=== PATIENT | female | born 1955 | race Caucasian/White ===

== ENCOUNTER 2020-06-16 15:21 | Emergency (ER) | payer MEDICAID, OTHER ==
[~2020-06-16] VITALS: Ht 152.4 cm; Wt 40.8 kg
[2020-06-16 17:02] LABS: Basophils # (auto) 0 10 ^3/uL (0-0.2); Basophils % (auto) 0.4 % (0.0-2.0); Eosinophils # (auto) 0 10 ^3/uL (0-0.8); Eosinophils % (auto) 0.1 % (0.0-7.0); Hematocrit 39.5 % (36.0-46.0); Hemoglobin 13.8 g/dL (12.2-16.2); Lymphocytes # (auto) 0.6 10 ^3/uL (0.4-5.4); Lymphocytes % (auto) 8.8 % (10.0-50.0); Mean Corpuscular Hemoglobin 31.3 pg (28.0-32.0); Mean Corpuscular Volume 89.2 fL (80.0-100.0); Monocytes # (auto) 0.4 10 ^3/uL (0-1.3); Monocytes % (auto) 5.9 % (0.0-12.0); Neutrophils # (auto) 5.8 10 ^3/uL (1.6-8.6); Neutrophils % (auto) 84.8 % (37.0-80.0); Red Blood Cells 4.43 10^6/uL (4.0-5.20); Red Cell Distribution Width 13.8 % (11.8-14.3); White Blood Cell 6.8 10^3/uL (4.4-10.8)
[2020-06-16] MEDS ORDERED: IOHEXOL 350 MG/ML 100ML IJ ONE (17:12)
[2020-06-16 17:20] LABS: Anion Gap 9 (5-15); Blood Urea Nitrogen 26 mg/dL (7-18); Carbon Dioxide 26 mmol/L (21-32); Chloride 101 mmol/L (98-107); Potassium 3.8 mmol/L (3.5-5.1); Sodium 136 mmol/L (136-145)
[2020-06-16 17:28] LABS: Alanine Aminotransferase 20 U/L (13-56); Albumin 4.2 g/dL (3.4-5.0); Alkaline Phosphatase 85 U/L (45-117); Aspartate Aminotransferase 19 U/L (15-37); BUN/Creatinine Ratio 17.6; Bilirubin, Total 0.5 mg/dL (0.2-1.0); Calcium 9.1 mg/dL (8.5-10.1); GFR African American 46 mL/min; GFR Non-African American 38 mL/min; Glucose 93 mg/dL (74-106); Total Protein 8.5 g/dL (6.4-8.2)
[2020-06-16] MEDS ORDERED: methylPREDNISolone SOD SUCC 125 MG/2 ML VL IM ONE (19:00)
[2020-06-16] MEDS ORDERED: cefTRIAXone SOD 1,000 MG VL IM ONE (19:00)
[2020-06-16 19:27] VITALS: BP 130/64
== END 2020-06-16 20:47 | disposition home or self-care (01) ==
LOC: ER 15:21 → EDBD 15:21 → ER 20:30
DX: J44.9 Chronic obstructive pulmonary disease, unspecified (principal); I12.9 Hypertensive chronic kidney disease with stage 1 through stage 4 chronic kidney disease, or unspecified chronic kidney disease; N18.32 Chronic kidney disease, stage 3b; Z20.822 Contact with and (suspected) exposure to COVID-19
CPT/HCPCS: 36415; 71045; 71275; 80053; 82728; 83605; 83880; 84484; 85025; 87040; 87426; 96372; 99285; C9803; J0696; J2930; Q9967; U0003; 93005

== ENCOUNTER 2020-07-12 19:54 | Emergency (ER) | payer MEDICAID ==
[~2020-07-12] VITALS: Ht 160 cm; Wt 44.0 kg
[2020-07-12 21:11] VITALS: BP 97/51
[2020-07-12] MEDS ORDERED: HYDROcodone-ACET 10/325MG TAB PO ONE (21:30)
== END 2020-07-12 23:12 | disposition home or self-care (01) ==
LOC: ER 19:54
DX: Z76.0 Encounter for issue of repeat prescription (principal); M54.5 Low back pain; M54.6 Pain in thoracic spine; M54.2 Cervicalgia; G89.29 Other chronic pain; I12.9 Hypertensive chronic kidney disease with stage 1 through stage 4 chronic kidney disease, or unspecified chronic kidney disease; N18.9 Chronic kidney disease, unspecified; F17.210 Nicotine dependence, cigarettes, uncomplicated

== ENCOUNTER 2020-07-13 20:48 | Emergency (ER) | payer MEDICAID ==
[~2020-07-13] VITALS: Ht 160 cm; Wt 44.0 kg
[2020-07-13 21:50] VITALS: BP 137/70
[2020-07-13] MEDS ORDERED: HYDROcodone-ACET 10/325MG TAB PO ONE (22:45)
== END 2020-07-13 23:44 | disposition home or self-care (01) ==
LOC: ER 20:51
DX: M54.5 Low back pain (principal); M54.2 Cervicalgia; G89.29 Other chronic pain; F17.210 Nicotine dependence, cigarettes, uncomplicated; I12.9 Hypertensive chronic kidney disease with stage 1 through stage 4 chronic kidney disease, or unspecified chronic kidney disease; N18.9 Chronic kidney disease, unspecified

== ENCOUNTER 2021-01-05 19:06 | Inpatient (IN) | payer OTHER, MEDICAID ==
[~2021-01-05] VITALS: Ht 160 cm; Wt 42.5 kg
[2021-01-05 19:33] LABS: Basophils # (auto) 0 10 ^3/uL (0-0.2); Eosinophils # (auto) 0.3 10 ^3/uL (0-0.8); Eosinophils % (auto) 7.2 % (0.0-7.0); Hematocrit 38.5 % (36.0-46.0); Hemoglobin 13.3 g/dL (12.2-16.2); Lymphocytes # (auto) 0.9 10 ^3/uL (0.4-5.4); Lymphocytes % (auto) 21.9 % (10.0-50.0); Mean Corpuscular Hemoglobin 30.9 pg (28.0-32.0); Mean Corpuscular Hgb Conc. 34.5 g/dL (32.0-36.0); Mean Corpuscular Volume 89.5 fL (80.0-100.0); Monocytes # (auto) 0.4 10 ^3/uL (0-1.3); Monocytes % (auto) 10.2 % (0.0-12.0); Neutrophils # (auto) 2.3 10 ^3/uL (1.6-8.6); Neutrophils % (auto) 59.7 % (37.0-80.0); Nucleated Red Blood Cells % 0.1 %; Red Cell Distribution Width 13.3 % (11.8-14.3); White Blood Cell 3.9 10^3/uL (4.4-10.8)
[2021-01-05 19:51] LABS: Albumin 3.9 g/dL (3.4-5.0); Anion Gap 5 (5-15); Blood Urea Nitrogen 9 mg/dL (7-18); Calcium 8.8 mg/dL (8.5-10.1); Carbon Dioxide 27 mmol/L (21-32); Chloride 106 mmol/L (98-107); Glucose 85 mg/dL (74-106); Potassium 3.7 mmol/L (3.5-5.1); Sodium 138 mmol/L (136-145)
[2021-01-05 19:57] LABS: Alanine Aminotransferase 24 U/L (13-56); Alkaline Phosphatase 70 U/L (45-117); Aspartate Aminotransferase 23 U/L (15-37); BUN/Creatinine Ratio 9.2; Bilirubin, Total 0.4 mg/dL (0.2-1.0); GFR African American 73 mL/min; GFR Non-African American 61 mL/min; Total Protein 7.7 g/dL (6.4-8.2)
[2021-01-05] MEDS ORDERED: ALBUTEROL SULF 2.5 MG/0.5ML(0.5%) NEB SOLN NEB ONE (21:45)
[2021-01-05] MEDS ORDERED: IPRATROPIUM BROM 0.5 MG/2.5ML INH SOL NEB ONE (21:45)
[2021-01-05] MEDS ORDERED: methylPREDNISolone SOD SUCC 125 MG/2 ML VL IV ONE (21:45)
[2021-01-05 22:24] LABS: Urine Bacteria NONE SEEN /hpf (None Seen); Urine Blood Negative /uL (Negative); Urine Specific Gravity 1.008 (1.001-1.035); Urine WBC 2 /hpf (0 - 5)
[2021-01-06] MEDS ORDERED: DOCUSATE SOD 100 MG CAP PO PRN (03:45)
[2021-01-06] MEDS ORDERED: ONDANSETRON HCL 4 MG/2 ML VIAL IV PRN (03:45)
[2021-01-06] MEDS ORDERED: ALBUTEROL SULF HFA 90MCG INH 200DOSE IN PRN (03:45)
[2021-01-06] MEDS ORDERED: ACETAMINOPHEN 325 MG TAB PO PRN (03:45)
[2021-01-06] MEDS ORDERED: LORazepam 0.5 MG TAB PO PRN (03:45)
[2021-01-06] MEDS ORDERED: ALUM & MAG HYDROX-SIMETH LIQ(MAALOX) 30 ML PO PRN (03:45)
[2021-01-06] MEDS ORDERED: IPRATROPIUM BROMIDE HFA AER IN SCH (06:00)
[2021-01-06] MEDS ORDERED: IPRATROPIUM BROM 0.5 MG/2.5ML INH SOL NEB PRN (06:00)
[2021-01-06] MEDS ORDERED: ALBUTEROL SULF 2.5 MG/0.5ML(0.5%) NEB SOLN NEB PRN (06:00)
[2021-01-06] MEDS ORDERED: ASCORBIC ACID 1,000 MG TAB PO SCH (10:00)
[2021-01-06] MEDS ORDERED: CHOLECALCIFEROL (VITD3) 2,000 UNIT CAP/TAB PO SCH (10:00)
[2021-01-06] MEDS: AZITHROMYCIN 500MG/ 250ML 250 ML IV SCH (10:00)
[2021-01-06] MEDS: DexAMETHasone SOD PHOS 10MG/1ML VIAL INJ IV SCH (11:11)
[2021-01-06] MEDS: MORPHINE SULFATE INJECTION 2 MG/2 ML SYRG IV PRN ×2 (11:16→22:31)
[2021-01-06] MEDS ORDERED: LISI-275 PO (16:32)
[2021-01-06] MEDS ORDERED: HYDR-4902 PO (16:32)
[2021-01-06] MEDS ORDERED: DOCU100T15 PO (16:32)
[2021-01-06 17:00] VITALS: BP 134/85
[2021-01-06 18:19] VITALS: BP 134/85
[2021-01-06] MEDS: HYDROcodone-ACET 5/325MG TAB PO PRN (19:53)
[2021-01-06 20:00] VITALS: BP 147/92
[2021-01-06 22:00] VITALS: BP 147/92
[2021-01-07] MEDS: MORPHINE SULFATE INJECTION 2 MG/2 ML SYRG IV PRN ×3 (04:19→23:12)
[2021-01-07 05:00] VITALS: BP 143/95
[2021-01-07 07:14] LABS: Basophils # (auto) 0.1 10 ^3/uL (0-0.2); Basophils % (auto) 0.7 % (0.0-2.0); Eosinophils # (auto) 0 10 ^3/uL (0-0.8); Hemoglobin 13.1 g/dL (12.2-16.2); Lymphocytes % (auto) 13.4 % (10.0-50.0); Mean Corpuscular Hemoglobin 30.8 pg (28.0-32.0); Mean Corpuscular Hgb Conc. 34.5 g/dL (32.0-36.0); Mean Corpuscular Volume 89.5 fL (80.0-100.0); Monocytes # (auto) 0.6 10 ^3/uL (0-1.3); Monocytes % (auto) 8.4 % (0.0-12.0); Neutrophils # (auto) 5.7 10 ^3/uL (1.6-8.6); Neutrophils % (auto) 77.5 % (37.0-80.0); Nucleated Red Blood Cells % 0.1 %; Red Blood Cells 4.25 10^6/uL (4.0-5.20); Red Cell Distribution Width 13.5 % (11.8-14.3); White Blood Cell 7.3 10^3/uL (4.4-10.8)
[2021-01-07 07:37] LABS: Potassium 4.7 mmol/L (3.5-5.1)
[2021-01-07 07:44] LABS: Albumin 3.4 g/dL (3.4-5.0); BUN/Creatinine Ratio 22.3; Bilirubin, Total 0.5 mg/dL (0.2-1.0); Total Protein 7.5 g/dL (6.4-8.2)
[2021-01-07 09:00] VITALS: BP 159/94
[2021-01-07] MEDS: AZITHROMYCIN 500MG/ 250ML 250 ML IV SCH (10:00)
[2021-01-07] MEDS: DexAMETHasone SOD PHOS 10MG/1ML VIAL INJ IV SCH (10:00)
[2021-01-07 13:00] VITALS: BP 145/86
[2021-01-07] MEDS: HYDROcodone-ACET 5/325MG TAB PO PRN ×2 (14:02→21:17)
[2021-01-07 16:30] VITALS: BP 130/91
[2021-01-07 22:00] VITALS: BP 146/79
[2021-01-08] MEDS: MORPHINE SULFATE INJECTION 2 MG/2 ML SYRG IV PRN ×2 (04:58→22:57)
[2021-01-08 05:01] VITALS: BP 139/80
[2021-01-08 06:33] LABS: Basophils # (auto) 0 10 ^3/uL (0-0.2); Basophils % (auto) 0.5 % (0.0-2.0); Eosinophils # (auto) 0 10 ^3/uL (0-0.8); Hematocrit 38.5 % (36.0-46.0); Hemoglobin 13.3 g/dL (12.2-16.2); Lymphocytes # (auto) 1.1 10 ^3/uL (0.4-5.4); Lymphocytes % (auto) 12.9 % (10.0-50.0); Mean Corpuscular Hemoglobin 30.3 pg (28.0-32.0); Mean Corpuscular Hgb Conc. 34.4 g/dL (32.0-36.0); Mean Corpuscular Volume 88.2 fL (80.0-100.0); Monocytes # (auto) 0.5 10 ^3/uL (0-1.3); Monocytes % (auto) 5.3 % (0.0-12.0); Neutrophils # (auto) 7.2 10 ^3/uL (1.6-8.6); Neutrophils % (auto) 81.3 % (37.0-80.0); Nucleated Red Blood Cells % 0.1 %; Red Blood Cells 4.37 10^6/uL (4.0-5.20); Red Cell Distribution Width 13.2 % (11.8-14.3); White Blood Cell 8.9 10^3/uL (4.4-10.8)
[2021-01-08 06:39] LABS: BUN/Creatinine Ratio 35.6; Calcium 8.8 mg/dL (8.5-10.1); Potassium 4.4 mmol/L (3.5-5.1)
[2021-01-08 08:30] VITALS: BP 124/83
[2021-01-08] MEDS: DexAMETHasone SOD PHOS 10MG/1ML VIAL INJ IV SCH (10:24)
[2021-01-08] MEDS: AZITHROMYCIN 500MG/ 250ML 250 ML IV SCH (10:24)
[2021-01-08] MEDS: HYDROcodone-ACET 5/325MG TAB PO PRN ×2 (10:45→20:33)
[2021-01-08 13:00] VITALS: BP 158/98
[2021-01-08 16:49] VITALS: BP 161/93
[2021-01-08 22:00] VITALS: BP 151/85
[2021-01-08] MEDS: APIXABAN 5 MG TAB PO SCH (22:23)
[2021-01-09] MEDS: MORPHINE SULFATE INJECTION 2 MG/2 ML SYRG IV PRN ×3 (04:33→19:41)
[2021-01-09 05:00] VITALS: BP 157/95
[2021-01-09 05:42] LABS: Basophils # (auto) 0 10 ^3/uL (0-0.2); Basophils % (auto) 0.1 % (0.0-2.0); Eosinophils # (auto) 0 10 ^3/uL (0-0.8); Hematocrit 37.5 % (36.0-46.0); Hemoglobin 13.2 g/dL (12.2-16.2); Lymphocytes # (auto) 1.5 10 ^3/uL (0.4-5.4); Lymphocytes % (auto) 19.8 % (10.0-50.0); Mean Corpuscular Hemoglobin 31.2 pg (28.0-32.0); Mean Corpuscular Hgb Conc. 35.2 g/dL (32.0-36.0); Mean Corpuscular Volume 88.6 fL (80.0-100.0); Monocytes # (auto) 0.6 10 ^3/uL (0-1.3); Monocytes % (auto) 7.7 % (0.0-12.0); Neutrophils # (auto) 5.6 10 ^3/uL (1.6-8.6); Neutrophils % (auto) 72.4 % (37.0-80.0); Red Blood Cells 4.24 10^6/uL (4.0-5.20); Red Cell Distribution Width 13.1 % (11.8-14.3); White Blood Cell 7.7 10^3/uL (4.4-10.8)
[2021-01-09 06:07] LABS: Albumin 3.4 g/dL (3.4-5.0); BUN/Creatinine Ratio 34.4; Calcium 8.5 mg/dL (8.5-10.1); Potassium 4.3 mmol/L (3.5-5.1)
[2021-01-09 06:10] LABS: Bilirubin, Total 0.4 mg/dL (0.2-1.0); Total Protein 6.8 g/dL (6.4-8.2)
[2021-01-09 09:00] VITALS: BP 151/89
[2021-01-09] MEDS: DexAMETHasone SOD PHOS 10MG/1ML VIAL INJ IV SCH (09:51)
[2021-01-09] MEDS: APIXABAN 5 MG TAB PO SCH ×2 (09:52→22:04)
[2021-01-09] MEDS: AZITHROMYCIN 500MG/ 250ML 250 ML IV SCH (09:52)
[2021-01-09] MEDS: HYDROcodone-ACET 5/325MG TAB PO PRN (09:53)
[2021-01-09 12:42] VITALS: BP 157/100
[2021-01-09 17:12] VITALS: BP 150/94
[2021-01-09 22:00] VITALS: BP 161/92
[2021-01-10] VITALS (7 sets, daily range): BP systolic 138–182; BP diastolic 79–92
[2021-01-10] MEDS: MORPHINE SULFATE INJECTION 2 MG/2 ML SYRG IV PRN ×4 (00:33→20:16)
[2021-01-10] MEDS: hydrALAZINE HCL 20 MG/ML VL IV PRN ×2 (00:33→06:43)
[2021-01-10 05:59] LABS: Basophils # (auto) 0 10 ^3/uL (0-0.2); Basophils % (auto) 0.4 % (0.0-2.0); Eosinophils # (auto) 0 10 ^3/uL (0-0.8); Eosinophils % (auto) 0.1 % (0.0-7.0); Hematocrit 40.9 % (36.0-46.0); Lymphocytes # (auto) 1.6 10 ^3/uL (0.4-5.4); Lymphocytes % (auto) 20.1 % (10.0-50.0); Mean Corpuscular Hemoglobin 30.7 pg (28.0-32.0); Mean Corpuscular Hgb Conc. 34.3 g/dL (32.0-36.0); Mean Corpuscular Volume 89.7 fL (80.0-100.0); Monocytes # (auto) 0.7 10 ^3/uL (0-1.3); Monocytes % (auto) 8.4 % (0.0-12.0); Neutrophils # (auto) 5.7 10 ^3/uL (1.6-8.6); Nucleated Red Blood Cells % 0.1 %; Red Blood Cells 4.56 10^6/uL (4.0-5.20); Red Cell Distribution Width 13.2 % (11.8-14.3); White Blood Cell 8.1 10^3/uL (4.4-10.8)
[2021-01-10 06:32] LABS: Potassium 4.4 mmol/L (3.5-5.1)
[2021-01-10 06:54] LABS: BUN/Creatinine Ratio 31.2
[2021-01-10] MEDS: LISINOPRIL 10 MG TAB PO SCH (09:10)
[2021-01-10] MEDS: APIXABAN 5 MG TAB PO SCH ×2 (09:11→20:47)
[2021-01-10] MEDS: DexAMETHasone SOD PHOS 10MG/1ML VIAL INJ IV SCH (09:11)
[2021-01-10] MEDS: AZITHROMYCIN 500MG/ 250ML 250 ML IV SCH (09:11)
[2021-01-10] MEDS: HYDROcodone-ACET 5/325MG TAB PO PRN (10:10)
[2021-01-10] MEDS ORDERED: methylPREDNISolone SOD SUCC 125 MG/2 ML VL IV ONE (11:00)
[2021-01-10] MEDS: IPRATROPIUM BROM 0.5 MG/2.5ML INH SOL NEB SCH ×3 (12:24→19:53)
[2021-01-10] MEDS: ALBUTEROL SULF 2.5 MG/0.5ML(0.5%) NEB SOLN NEB SCH ×2 (12:32→19:53)
[2021-01-10] MEDS: methylPREDNISolone SOD SUCC 40 MG/ML VL IV SCH (20:47)
[2021-01-11] MEDS: MORPHINE SULFATE INJECTION 2 MG/2 ML SYRG IV PRN ×2 (00:26→05:05)
[2021-01-11] MEDS: ALBUTEROL SULF 2.5 MG/0.5ML(0.5%) NEB SOLN NEB SCH ×3 (00:46→11:38)
[2021-01-11] MEDS: IPRATROPIUM BROM 0.5 MG/2.5ML INH SOL NEB SCH ×3 (00:47→11:38)
[2021-01-11 05:00] VITALS: BP 160/89
[2021-01-11] MEDS: hydrALAZINE HCL 20 MG/ML VL IV PRN (07:05)
[2021-01-11 08:00] VITALS: BP 129/69
[2021-01-11 08:58] VITALS: BP 122/67
[2021-01-11] MEDS: methylPREDNISolone SOD SUCC 40 MG/ML VL IV SCH (09:10)
[2021-01-11] MEDS: APIXABAN 5 MG TAB PO SCH (09:11)
[2021-01-11] MEDS: HYDROcodone-ACET 5/325MG TAB PO PRN (09:12)
[2021-01-11] MEDS: LISINOPRIL 10 MG TAB PO SCH (09:12)
[2021-01-11 10:46] VITALS: BP 129/69
[2021-01-11 13:00] VITALS: BP 152/85
[2021-01-15] MEDS ORDERED: APIXABAN 5 MG TAB PO SCH (22:00)
== END 2021-01-11 13:30 | disposition home or self-care (01) | DRG 189 ==
LOC: EDBD 19:06 → ER 19:12 → OVERFLOW 01-06 03:32 → CENTRAL 01-06 14:52
PROVIDERS: ADMIT Hospitalist; ATTEND Internal Medicine
DX: J96.21 Acute and chronic respiratory failure with hypoxia (principal); J18.9 Pneumonia, unspecified organism; I82.411 Acute embolism and thrombosis of right femoral vein; J44.1 Chronic obstructive pulmonary disease with (acute) exacerbation; J45.901 Unspecified asthma with (acute) exacerbation; E87.1 Hypo-osmolality and hyponatremia; N17.9 Acute kidney failure, unspecified; J20.9 Acute bronchitis, unspecified; N18.30 Chronic kidney disease, stage 3 unspecified; I12.9 Hypertensive chronic kidney disease with stage 1 through stage 4 chronic kidney disease, or unspecified chronic kidney disease; G89.29 Other chronic pain; Z20.822 Contact with and (suspected) exposure to COVID-19; Z79.01 Long term (current) use of anticoagulants; Z86.73 Personal history of transient ischemic attack (TIA), and cerebral infarction without residual deficits; Z72.0 Tobacco use
CPT/HCPCS: 36415; 71045; 71250; 78582; 80048; 80053; 81001; 83735; 83880; 84443; 84484; 85025; 85379; 87070; 87205; 87426; 92610; 93005; 93970; 94640; 96365; 96366; 96375; G0378; J1100; J2405

== ENCOUNTER 2021-03-08 23:26 | Inpatient (IN) | payer OTHER, MEDICAID ==
[~2021-03-08] VITALS: Ht 162.6 cm; Wt 43.0 kg
[~2021-03-08 23:26] MED LIST: DOCU100T15 PO; HYDR-4902 PO; LISI-275 PO
[2021-03-08 23:56] LABS: Basophils # (auto) 0.1 10 ^3/uL (0-0.2); Basophils % (auto) 0.5 % (0.0-2.0); Eosinophils # (auto) 0.1 10 ^3/uL (0-0.8); Eosinophils % (auto) 0.4 % (0.0-7.0); Hematocrit 42.1 % (36.0-46.0); Lymphocytes # (auto) 0.7 10 ^3/uL (0.4-5.4); Lymphocytes % (auto) 4.9 % (10.0-50.0); Mean Corpuscular Hemoglobin 28.9 pg (28.0-32.0); Mean Corpuscular Hgb Conc. 33.2 g/dL (32.0-36.0); Monocytes # (auto) 0.6 10 ^3/uL (0-1.3); Monocytes % (auto) 4.5 % (0.0-12.0); Neutrophils # (auto) 12.3 10 ^3/uL (1.6-8.6); Neutrophils % (auto) 89.7 % (37.0-80.0); Red Blood Cells 4.85 10^6/uL (4.0-5.20); Red Cell Distribution Width 15.1 % (11.8-14.3); White Blood Cell 13.7 10^3/uL (4.4-10.8)
[2021-03-09 00:20] LABS: Albumin 3.6 g/dL (3.4-5.0); Calcium 8.7 mg/dL (8.5-10.1); Potassium 3.3 mmol/L (3.5-5.1)
[2021-03-09 00:25] LABS: BUN/Creatinine Ratio 14.3; Bilirubin, Total 0.6 mg/dL (0.2-1.0); Total Protein 7.1 g/dL (6.4-8.2)
[2021-03-09] MEDS ORDERED: cefTRIAXone 1GM/50ML D5W 50 ML IV ONE (08:15)
[2021-03-09] MEDS ORDERED: AZITHROMYCIN 500MG/ 250ML 250 ML IV ONE (08:15)
[2021-03-09] MEDS ORDERED: POTASSIUM EFFERVESENT TAB 25 MEQ PO ONE (08:15)
[2021-03-09] MEDS ORDERED: HYDROcodone-ACET 5/325MG TAB PO PRN (09:45)
[2021-03-09] MEDS ORDERED: ACETAMINOPHEN 500 MG TAB PO PRN (09:45)
[2021-03-09] MEDS ORDERED: NITROGLYCERIN 0.4 MG SL TAB SL PRN (09:45)
[2021-03-09] MEDS ORDERED: MORPHINE SULFATE INJECTION 2 MG/ML SYRG IV PRN ×2 (09:45)
[2021-03-09 10:03] LABS: Urine Bacteria NONE SEEN /hpf (None Seen); Urine Blood Negative /uL (Negative); Urine Specific Gravity 1.015 (1.001-1.035); Urine WBC 1 /hpf (0 - 5)
[2021-03-09 10:39] VITALS: BP 166/80
[2021-03-09] MEDS: ENOXAPARIN SOD 40 MG/0.4 ML SYRINGE SC SCH (10:57)
[2021-03-09] MEDS: LISINOPRIL 5 MG TAB PO SCH (10:57)
[2021-03-09] MEDS: BUDESONIDE (INHALATION) 0.5 MG/2 ML NEB NEB SCH ×2 (11:45→20:00)
[2021-03-09] MEDS: ALBUTEROL SULF 2.5 MG/0.5ML(0.5%) NEB SOLN NEB SCH ×2 (11:45→20:00)
[2021-03-09] MEDS: IPRATROPIUM BROM 0.5 MG/2.5ML INH SOL NEB SCH ×2 (11:45→20:00)
[2021-03-09 17:00] VITALS: BP 143/76
[2021-03-09 17:06] VITALS: BP 143/76
[2021-03-09 22:00] VITALS: BP 116/63
[2021-03-10 05:00] VITALS: BP 147/79
[2021-03-10] MEDS: ALBUTEROL SULF 2.5 MG/0.5ML(0.5%) NEB SOLN NEB SCH ×3 (06:24→18:28)
[2021-03-10] MEDS: BUDESONIDE (INHALATION) 0.5 MG/2 ML NEB NEB SCH ×2 (06:24→18:28)
[2021-03-10] MEDS: IPRATROPIUM BROM 0.5 MG/2.5ML INH SOL NEB SCH ×3 (06:24→18:28)
[2021-03-10 06:46] LABS: Basophils # (auto) 0 10 ^3/uL (0-0.2); Basophils % (auto) 0.3 % (0.0-2.0); Eosinophils # (auto) 0.2 10 ^3/uL (0-0.8); Eosinophils % (auto) 1.8 % (0.0-7.0); Hematocrit 36.9 % (36.0-46.0); Hemoglobin 12.6 g/dL (12.2-16.2); Lymphocytes # (auto) 0.8 10 ^3/uL (0.4-5.4); Lymphocytes % (auto) 6.8 % (10.0-50.0); Mean Corpuscular Hemoglobin 29.5 pg (28.0-32.0); Mean Corpuscular Hgb Conc. 34.1 g/dL (32.0-36.0); Mean Corpuscular Volume 86.7 fL (80.0-100.0); Monocytes # (auto) 0.6 10 ^3/uL (0-1.3); Monocytes % (auto) 5.7 % (0.0-12.0); Neutrophils # (auto) 9.7 10 ^3/uL (1.6-8.6); Neutrophils % (auto) 85.4 % (37.0-80.0); Red Blood Cells 4.25 10^6/uL (4.0-5.20); Red Cell Distribution Width 15.1 % (11.8-14.3); White Blood Cell 11.3 10^3/uL (4.4-10.8)
[2021-03-10 06:59] LABS: Calcium 8.9 mg/dL (8.5-10.1); Potassium 3.3 mmol/L (3.5-5.1)
[2021-03-10 07:02] LABS: BUN/Creatinine Ratio 21.1
[2021-03-10 09:16] VITALS: BP 140/88
[2021-03-10] MEDS: cefTRIAXone 1GM/50ML D5W 50 ML IV SCH (09:30)
[2021-03-10] MEDS: AZITHROMYCIN 500MG/ 250ML 250 ML IV SCH (10:06)
[2021-03-10] MEDS: ENOXAPARIN SOD 40 MG/0.4 ML SYRINGE SC SCH (10:07)
[2021-03-10] MEDS: LISINOPRIL 5 MG TAB PO SCH (10:16)
[2021-03-10] MEDS ORDERED: POTASSIUM CHL 20 Meq TABLET PO ONE (11:45)
[2021-03-10 12:55] VITALS: BP 160/88
[2021-03-10] MEDS ORDERED: cloNIDine HCL 0.1 MG TAB PO PRN (13:45)
[2021-03-10 16:57] VITALS: BP 157/83
[2021-03-10 22:00] VITALS: BP 145/75
[2021-03-10] MEDS: APIXABAN 5 MG TAB PO SCH (22:15)
[2021-03-11 04:54] LABS: Basophils # (auto) 0.1 10 ^3/uL (0-0.2); Basophils % (auto) 0.7 % (0.0-2.0); Eosinophils # (auto) 0.4 10 ^3/uL (0-0.8); Eosinophils % (auto) 3.9 % (0.0-7.0); Hemoglobin 12.7 g/dL (12.2-16.2); Lymphocytes # (auto) 1.2 10 ^3/uL (0.4-5.4); Lymphocytes % (auto) 12.3 % (10.0-50.0); Mean Corpuscular Hemoglobin 29.4 pg (28.0-32.0); Mean Corpuscular Hgb Conc. 33.5 g/dL (32.0-36.0); Mean Corpuscular Volume 87.9 fL (80.0-100.0); Monocytes # (auto) 0.6 10 ^3/uL (0-1.3); Monocytes % (auto) 6.3 % (0.0-12.0); Neutrophils # (auto) 7.3 10 ^3/uL (1.6-8.6); Neutrophils % (auto) 76.8 % (37.0-80.0); Red Blood Cells 4.32 10^6/uL (4.0-5.20); Red Cell Distribution Width 14.9 % (11.8-14.3); White Blood Cell 9.5 10^3/uL (4.4-10.8)
[2021-03-11 05:00] VITALS: BP 153/78
[2021-03-11] MEDS ORDERED: DULO20CA PO (05:14)
[2021-03-11] MEDS ORDERED: APIX5TAB PO (05:14)
[2021-03-11] MEDS ORDERED: BUDE1AER6 IN (05:14)
[2021-03-11] MEDS ORDERED: BENA1TAB21 PO (05:14)
[2021-03-11] MEDS ORDERED: HYDR-4798 PO (05:14)
[2021-03-11] MEDS ORDERED: PANT40TA2 PO (05:14)
[2021-03-11] MEDS ORDERED: CHOL20007 PO (05:14)
[2021-03-11] MEDS ORDERED: GABA300C10 PO (05:14)
[2021-03-11 05:16] LABS: Calcium 8.9 mg/dL (8.5-10.1); Potassium 3.4 mmol/L (3.5-5.1)
[2021-03-11] MEDS: BUDESONIDE (INHALATION) 0.5 MG/2 ML NEB NEB SCH ×2 (07:00→18:39)
[2021-03-11] MEDS: IPRATROPIUM BROM 0.5 MG/2.5ML INH SOL NEB SCH ×3 (07:00→18:39)
[2021-03-11] MEDS: ALBUTEROL SULF 2.5 MG/0.5ML(0.5%) NEB SOLN NEB SCH ×3 (07:00→18:39)
[2021-03-11 09:00] VITALS: BP 162/88
[2021-03-11] MEDS ORDERED: LISINOPRIL 5 MG TAB PO SCH (10:00)
[2021-03-11] MEDS ORDERED: cloNIDine HCL 0.1 MG TAB ONE (10:09)
[2021-03-11] MEDS: cefTRIAXone 1GM/50ML D5W 50 ML IV SCH (10:22)
[2021-03-11] MEDS: APIXABAN 5 MG TAB PO SCH ×2 (10:23→22:59)
[2021-03-11] MEDS ORDERED: HCTZ 25 MG TAB PO ONE (11:15)
[2021-03-11] MEDS: AZITHROMYCIN 500MG/ 250ML 250 ML IV SCH (11:18)
[2021-03-11 13:00] VITALS: BP 131/69
[2021-03-11 17:00] VITALS: BP 129/81
[2021-03-11 23:20] VITALS: BP 135/80
[2021-03-12 05:26] VITALS: BP 122/61
[2021-03-12] MEDS: ALBUTEROL SULF 2.5 MG/0.5ML(0.5%) NEB SOLN NEB SCH ×2 (06:59→12:00)
[2021-03-12] MEDS: IPRATROPIUM BROM 0.5 MG/2.5ML INH SOL NEB SCH ×2 (06:59→12:00)
[2021-03-12] MEDS: BUDESONIDE (INHALATION) 0.5 MG/2 ML NEB NEB SCH (07:00)
[2021-03-12 07:27] LABS: BUN/Creatinine Ratio 23.1; Calcium 9.2 mg/dL (8.5-10.1)
[2021-03-12 09:00] VITALS: BP 151/80
[2021-03-12] MEDS ORDERED: LISINOPRIL 5 MG TAB PO SCH (10:00)
[2021-03-12] MEDS ORDERED: HCTZ 25 MG TAB PO SCH (10:00)
[2021-03-12] MEDS ORDERED: POTASSIUM CHL 20 Meq TABLET PO SCH (10:00)
[2021-03-12] MEDS: AZITHROMYCIN 500MG/ 250ML 250 ML IV SCH (10:08)
[2021-03-12] MEDS: cefTRIAXone 1GM/50ML D5W 50 ML IV SCH (10:08)
[2021-03-12] MEDS: APIXABAN 5 MG TAB PO SCH (10:08)
[2021-03-12] MEDS ORDERED: LEVO750T8 PO (12:10)
[2021-03-12] MEDS ORDERED: ALBUAER3 IN (12:10)
[2021-03-12 13:24] VITALS: BP 151/80
== END 2021-03-12 16:00 | disposition home health service (06) | DRG 871 ==
LOC: EDBD 23:26 → ER 23:26 → TELE 03-09 09:34 → TELE-EAST 03-09 16:16 → TELE-CENTR 03-09 16:40 → CENTRAL 03-11 11:45
PROVIDERS: ADMIT Nurse Practitioner Acute Care; ATTEND Internal Medicine
DX: A41.9 Sepsis, unspecified organism (principal); J18.9 Pneumonia, unspecified organism; J96.21 Acute and chronic respiratory failure with hypoxia; G92.8 Other toxic encephalopathy; J44.1 Chronic obstructive pulmonary disease with (acute) exacerbation; R64 Cachexia; J44.0 Chronic obstructive pulmonary disease with (acute) lower respiratory infection; N18.31 Chronic kidney disease, stage 3a; Z20.822 Contact with and (suspected) exposure to COVID-19; I12.9 Hypertensive chronic kidney disease with stage 1 through stage 4 chronic kidney disease, or unspecified chronic kidney disease; E87.6 Hypokalemia; F17.210 Nicotine dependence, cigarettes, uncomplicated; Z79.899 Other long term (current) drug therapy; Z82.49 Family history of ischemic heart disease and other diseases of the circulatory system; Z83.3 Family history of diabetes mellitus; Z86.718 Personal history of other venous thrombosis and embolism; Z86.73 Personal history of transient ischemic attack (TIA), and cerebral infarction without residual deficits
CPT/HCPCS: 36415; 36600; 71045; 71046; 80048; 80053; 81001; 82805; 83605; 83880; 84484; 85025; 87040; 87426; 87804; 94640; 96365; 96367; 97163; G0378; J0696

== ENCOUNTER 2021-05-06 17:23 | Inpatient (IN) | payer OTHER, MEDICAID ==
[~2021-05-06] VITALS: Ht 167.6 cm; Wt 43.0 kg
[~2021-05-06 17:23] MED LIST changes: +ALBUAER3 IN; +APIX5TAB PO; +BENA1TAB21 PO; +BUDE1AER6 IN; +CHOL20007 PO; +DULO20CA PO; +GABA300C10 PO; +HYDR-4798 PO; +LEVO750T8 PO; +PANT40TA2 PO
[2021-05-06 22:38] LABS: Basophils # (auto) 0 10 ^3/uL (0-0.2); Eosinophils # (auto) 0 10 ^3/uL (0-0.8); Eosinophils % (auto) 0.3 % (0.0-7.0); Lymphocytes # (auto) 0.5 10 ^3/uL (0.4-5.4); Monocytes # (auto) 0.5 10 ^3/uL (0-1.3); White Blood Cell 4.8 10^3/uL (4.4-10.8)
[2021-05-06 22:40] LABS: Basophils % (auto) 0.4 % (0.0-2.0); Hemoglobin 13.3 g/dL (12.2-16.2); Lymphocytes % (auto) 10.4 % (10.0-50.0); Mean Corpuscular Hemoglobin 26.9 pg (28.0-32.0); Mean Corpuscular Hgb Conc. 33.3 g/dL (32.0-36.0); Mean Corpuscular Volume 80.6 fL (80.0-100.0); Monocytes % (auto) 10.7 % (0.0-12.0); Neutrophils # (auto) 3.8 10 ^3/uL (1.6-8.6); Neutrophils % (auto) 78.2 % (37.0-80.0); Red Blood Cells 4.96 10^6/uL (4.0-5.20)
[2021-05-06 23:04] LABS: Albumin 3.6 g/dL (3.4-5.0); Calcium 8.5 mg/dL (8.5-10.1); Potassium 3.2 mmol/L (3.5-5.1)
[2021-05-06 23:10] LABS: BUN/Creatinine Ratio 14.6; Bilirubin, Total 0.7 mg/dL (0.2-1.0); Total Protein 7.2 g/dL (6.4-8.2)
[2021-05-07] MEDS ORDERED: ONDANSETRON HCL 4 MG/2 ML VIAL IV PRN (05:30)
[2021-05-07] MEDS ORDERED: HYDROcodone-ACET 5/325MG TAB PO PRN (05:30)
[2021-05-07] MEDS ORDERED: ACETAMINOPHEN 500 MG TAB PO PRN (05:30)
[2021-05-07] MEDS ORDERED: MORPHINE SULFATE INJECTION 2 MG/ML SYRG IV PRN (05:30)
[2021-05-07] MEDS ORDERED: ACETAMINOPHEN 325 MG TAB PO PRN (05:30)
[2021-05-07] MEDS ORDERED: NITROGLYCERIN 0.4 MG SL TAB SL PRN (05:30)
[2021-05-07] MEDS ORDERED: DOCUSATE SOD 100 MG CAP PO PRN (05:30)
[2021-05-07] MEDS: SODIUM CHLORIDE 0.9% 1,000 ML IV SCH ×2 (06:51→12:41)
[2021-05-07] MEDS: POTASSIUM CHL 20MEQ/100ML 100 ML IV SCH ×2 (06:51→08:30)
[2021-05-07 07:27] VITALS: BP 170/87
[2021-05-07 08:48] VITALS: BP 188/88
[2021-05-07] MEDS: cefTRIAXone 1GM/50ML D5W 50 ML IV SCH (09:06)
[2021-05-07] MEDS: FAMOTIDINE (10MG/ML) 2ML VL IV SCH ×2 (09:06→22:10)
[2021-05-07] MEDS: DexAMETHasone SOD PHOS 10MG/1ML VIAL INJ IV SCH (09:06)
[2021-05-07] MEDS: ENOXAPARIN SOD 40 MG/0.4 ML SYRINGE SC SCH (09:07)
[2021-05-07] MEDS: METOPROLOL TARTRATE 50 MG TAB PO SCH ×2 (09:07→22:10)
[2021-05-07] MEDS: MULTIPLE VITAMIN TAB PO SCH (09:07)
[2021-05-07] MEDS: CHOLECALCIFEROL (VITD3) 2,000 UNIT CAP/TAB PO SCH (09:07)
[2021-05-07] MEDS: ZINC SULFATE 220mg CAP or TAB PO SCH (09:08)
[2021-05-07] MEDS: amLODIPine BESYLATE 5 MG TAB PO SCH (09:08)
[2021-05-07] MEDS: ASPirin 81 mg TAB PO SCH (09:08)
[2021-05-07] MEDS: ASCORBIC ACID 1,000 MG TAB PO SCH (09:08)
[2021-05-07] MEDS: ALBUTEROL SULF HFA 90MCG INH 200DOSE IN PRN ×2 (09:45→22:30)
[2021-05-07] MEDS: BUDESONIDE (INHALATION) 180 MCG IH IN SCH ×2 (09:45→22:30)
[2021-05-07] MEDS: DOXYCYCLINE 100MG/250ML 250 ML IV SCH ×2 (09:52→22:10)
[2021-05-07] MEDS: hydrALAZINE HCL 20 MG/ML VL IV PRN ×2 (11:59→21:26)
[2021-05-07] MEDS ORDERED: POTASSIUM CHL 20MEQ/100ML 100 ML IV SCH (12:15)
[2021-05-07 13:00] VITALS: BP 188/92
[2021-05-07 16:48] VITALS: BP 161/95
[2021-05-07 22:00] VITALS: BP 154/88
[2021-05-08 05:00] VITALS: BP 153/95
[2021-05-08] MEDS: hydrALAZINE HCL 20 MG/ML VL IV PRN ×2 (05:33→13:34)
[2021-05-08 06:56] LABS: Lymphocytes % (auto) 10.1 % (10.0-50.0); Monocytes % (auto) 14.8 % (0.0-12.0); Neutrophils % (auto) 74.9 % (37.0-80.0); White Blood Cell 5.9 10^3/uL (4.4-10.8)
[2021-05-08 06:57] LABS: Basophils # (auto) 0 10 ^3/uL (0-0.2); Basophils % (auto) 0.2 % (0.0-2.0); Eosinophils # (auto) 0 10 ^3/uL (0-0.8); Hematocrit 40.3 % (36.0-46.0); Lymphocytes # (auto) 0.6 10 ^3/uL (0.4-5.4); Mean Corpuscular Hemoglobin 27.5 pg (28.0-32.0); Mean Corpuscular Hgb Conc. 34.6 g/dL (32.0-36.0); Mean Corpuscular Volume 79.5 fL (80.0-100.0); Monocytes # (auto) 0.9 10 ^3/uL (0-1.3); Neutrophils # (auto) 4.4 10 ^3/uL (1.6-8.6); Nucleated Red Blood Cells % 0.1 %; Red Blood Cells 5.07 10^6/uL (4.0-5.20); Red Cell Distribution Width 15.3 % (11.8-14.3)
[2021-05-08 07:01] LABS: Calcium 8.5 mg/dL (8.5-10.1); Potassium 3.2 mmol/L (3.5-5.1)
[2021-05-08 07:08] LABS: Albumin 3.5 g/dL (3.4-5.0); BUN/Creatinine Ratio 22.7; Bilirubin, Total 0.5 mg/dL (0.2-1.0); Total Protein 7.4 g/dL (6.4-8.2)
[2021-05-08] MEDS: BUDESONIDE (INHALATION) 180 MCG IH IN SCH (07:10)
[2021-05-08] MEDS: ALBUTEROL SULF HFA 90MCG INH 200DOSE IN PRN (07:10)
[2021-05-08 09:13] VITALS: BP 158/94
[2021-05-08] MEDS: ENOXAPARIN SOD 40 MG/0.4 ML SYRINGE SC SCH (09:39)
[2021-05-08] MEDS: DexAMETHasone SOD PHOS 10MG/1ML VIAL INJ IV SCH (09:39)
[2021-05-08] MEDS: FAMOTIDINE (10MG/ML) 2ML VL IV SCH (09:39)
[2021-05-08] MEDS: cefTRIAXone 1GM/50ML D5W 50 ML IV SCH (09:40)
[2021-05-08] MEDS: ASCORBIC ACID 1,000 MG TAB PO SCH (09:40)
[2021-05-08] MEDS: ASPirin 81 mg TAB PO SCH (09:40)
[2021-05-08] MEDS: METOPROLOL TARTRATE 50 MG TAB PO SCH (09:40)
[2021-05-08] MEDS: ZINC SULFATE 220mg CAP or TAB PO SCH (09:40)
[2021-05-08] MEDS: CHOLECALCIFEROL (VITD3) 2,000 UNIT CAP/TAB PO SCH (09:41)
[2021-05-08] MEDS: MULTIPLE VITAMIN TAB PO SCH (09:41)
[2021-05-08] MEDS: amLODIPine BESYLATE 5 MG TAB PO SCH (09:41)
[2021-05-08] MEDS: DOXYCYCLINE 100MG/250ML 250 ML IV SCH (10:50)
[2021-05-08 12:50] VITALS: BP 166/86
[2021-05-08] MEDS ORDERED: MET50T PO (13:15)
[2021-05-08] MEDS ORDERED: ALBUAER3 IN (13:15)
[2021-05-08] MEDS ORDERED: DEXA6TAB6 PO (13:15)
[2021-05-08] MEDS ORDERED: DOXY-332 PO (13:15)
[2021-05-08] MEDS ORDERED: AML5T PO (13:15)
[2021-05-08 14:41] VITALS: BP 166/86
[2021-05-08] MEDS: SODIUM CHLORIDE 0.9% 1,000 ML IV SCH (15:36)
[2021-05-08 17:11] VITALS: BP 147/74
== END 2021-05-08 18:46 | disposition home health service (06) | DRG 177 ==
LOC: ER 17:23 → EDBD 17:23 → TELE 05-07 05:53 → TELE-EAST 05-07 08:05
PROVIDERS: ADMIT Nurse Practitioner Family; ATTEND Nurse Practitioner Family
DX: U07.1 COVID-19 (principal); J12.82 Pneumonia due to coronavirus disease 2019; J96.01 Acute respiratory failure with hypoxia; E87.1 Hypo-osmolality and hyponatremia; J44.0 Chronic obstructive pulmonary disease with (acute) lower respiratory infection; E87.6 Hypokalemia; F17.210 Nicotine dependence, cigarettes, uncomplicated; I16.0 Hypertensive urgency; I12.9 Hypertensive chronic kidney disease with stage 1 through stage 4 chronic kidney disease, or unspecified chronic kidney disease; R77.8 Other specified abnormalities of plasma proteins; K21.9 Gastro-esophageal reflux disease without esophagitis; F32.9 Major depressive disorder, single episode, unspecified; N18.9 Chronic kidney disease, unspecified; Z82.49 Family history of ischemic heart disease and other diseases of the circulatory system; Z83.3 Family history of diabetes mellitus; Z86.73 Personal history of transient ischemic attack (TIA), and cerebral infarction without residual deficits
CPT/HCPCS: 36415; 70450; 71045; 80053; 83605; 83735; 84484; 85025; 87040; 87426; 93005; 94640; G0378; J0696; J1100; J3480; J3490

== ENCOUNTER 2021-05-26 06:12 | Inpatient (IN) | payer OTHER, MEDICAID ==
[~2021-05-26] VITALS: Ht 157.5 cm; Wt 52.1 kg
[~2021-05-26 06:12] MED LIST changes: +AML5T PO; +DEXA6TAB6 PO; +DOXY-332 PO; -HYDR-4902 PO; -LEVO750T8 PO; +MET50T PO
[2021-05-26 07:54] LABS: Basophils # (auto) 0.1 10 ^3/uL (0-0.2); Basophils % (auto) 0.6 % (0.0-2.0); Eosinophils # (auto) 0.1 10 ^3/uL (0-0.8); Hematocrit 34.6 % (36.0-46.0); Hemoglobin 11.7 g/dL (12.2-16.2); Lymphocytes # (auto) 1.2 10 ^3/uL (0.4-5.4); Lymphocytes % (auto) 9.3 % (10.0-50.0); Mean Corpuscular Hemoglobin 27.2 pg (28.0-32.0); Mean Corpuscular Hgb Conc. 33.9 g/dL (32.0-36.0); Mean Corpuscular Volume 80.1 fL (80.0-100.0); Monocytes # (auto) 0.7 10 ^3/uL (0-1.3); Monocytes % (auto) 5.2 % (0.0-12.0); Neutrophils # (auto) 10.6 10 ^3/uL (1.6-8.6); Neutrophils % (auto) 83.9 % (37.0-80.0); Nucleated Red Blood Cells % 0.1 %; Red Blood Cells 4.32 10^6/uL (4.0-5.20); Red Cell Distribution Width 16.1 % (11.8-14.3); White Blood Cell 12.7 10^3/uL (4.4-10.8)
[2021-05-26] MEDS ORDERED: ONDANSETRON HCL 4 MG/2 ML VIAL IV ONE ×2 (08:30→10:30)
[2021-05-26] MEDS ORDERED: MORPHINE SULFATE 4 MG/ML SYR/VIAL IV ONE ×2 (08:30→10:30)
[2021-05-26 09:23] LABS: Albumin 3.4 g/dL (3.4-5.0); Calcium 8.8 mg/dL (8.5-10.1); Potassium 4.8 mmol/L (3.5-5.1)
[2021-05-26 09:29] LABS: BUN/Creatinine Ratio 27.7; Bilirubin, Total 0.5 mg/dL (0.2-1.0)
[2021-05-26 11:46] LABS: INR 0.99 (0.9-1.15)
[2021-05-26] MEDS ORDERED: NITROGLYCERIN 0.4 MG SL TAB SL PRN ×2 (12:15→16:30)
[2021-05-26] MEDS ORDERED: ONDANSETRON HCL 4 MG/2 ML VIAL IV PRN (15:00)
[2021-05-26] MEDS ORDERED: ceFAZolin 1GM/50ML 50 ML IV ONE (15:00)
[2021-05-26] MEDS: SODIUM CHLORIDE 0.9% 1,000 ML IV SCH ×2 (15:00→15:20)
[2021-05-26] MEDS: MORPHINE SULFATE INJECTION 2 MG/ML SYRG IV PRN (15:21)
[2021-05-26] MEDS ORDERED: IPRATROPIUM BROM 0.5 MG/2.5ML INH SOL NEB ONE (15:45)
[2021-05-26] MEDS ORDERED: NIFEdipine ER 30 MG TAB PO ONE (15:45)
[2021-05-26] MEDS ORDERED: BENAZEPRIL HCL 10 MG TAB PO ONE (15:45)
[2021-05-26] MEDS ORDERED: hydrALAZINE HCL 20 MG/ML VL IV PRN (15:45)
[2021-05-26] MEDS ORDERED: DOCUSATE SOD 100 MG CAP PO PRN (16:30)
[2021-05-26] MEDS ORDERED: BUDESONIDE (INHALATION) 0.5 MG/2 ML NEB NEB ONE (16:30)
[2021-05-26] MEDS ORDERED: MORPHINE SULFATE INJECTION 2 MG/ML SYRG IV PRN (16:30)
[2021-05-26] MEDS ORDERED: METOCLOPRAMIDE HCL 5MG/ml INJ 2ml VIAL IV PRN (16:30)
[2021-05-26] MEDS ORDERED: ACETAMINOPHEN 325 MG TAB PO PRN (16:30)
[2021-05-26] MEDS ORDERED: PANTOPRAZOLE 40 MG/10 ML VIAL INJ IV ONE (16:30)
[2021-05-26] MEDS ORDERED: METOPROLOL SUCCINATE XL 50 MG TAB PO ONE (16:30)
[2021-05-26] MEDS ORDERED: CALCIUM W/VIT D (600MG/400IU) TAB PO ONE (16:30)
[2021-05-26] MEDS ORDERED: LORazepam 0.5 MG TAB PO PRN (16:30)
[2021-05-26] MEDS ORDERED: ALUM & MAG HYDROX-SIMETH LIQ(MAALOX) 30 ML PO PRN (16:30)
[2021-05-26 16:44] VITALS: BP 149/94
[2021-05-26 17:12] LABS: Cholesterol 210 mg/dL (< 200); HDL Cholesterol 67 mg/dL (40-59); LDL Cholesterol 117 mg/dL (< 100); Triglycerides 97 mg/dL (< 150)
[2021-05-26] MEDS: HYDROcodone-ACET 5/325MG TAB PO PRN (18:56)
[2021-05-26] MEDS: ceFAZolin 1GM/50ML 50 ML IV SCH (18:57)
[2021-05-26] MEDS: IPRATROPIUM BROM 0.5 MG/2.5ML INH SOL NEB SCH ×2 (19:54→22:29)
[2021-05-26] MEDS: MEGESTROL ACET 400MG/10ML ORAL SUSP PO SCH (21:00)
[2021-05-26 22:00] VITALS: BP 86/44
[2021-05-26] MEDS ORDERED: BUDESONIDE (INHALATION) 0.5 MG/2 ML NEB NEB SCH (22:00)
[2021-05-26] MEDS ORDERED: ATORVASTATIN 20 MG TAB PO SCH (22:00)
[2021-05-26] MEDS: LATANOPROST 0.005 % OPTH(EYE) SOL 2.5ML EACHEYE SCH (23:42)
[2021-05-27] VITALS: BP 102/55
[2021-05-27] MEDS: HYDROcodone-ACET 5/325MG TAB PO PRN (01:25)
[2021-05-27] MEDS: IPRATROPIUM BROM 0.5 MG/2.5ML INH SOL NEB SCH (02:00)
[2021-05-27 05:00] VITALS: BP 77/47
[2021-05-27] MEDS: AZITHROMYCIN 500MG/ 250ML 250 ML IV SCH (05:10)
[2021-05-27] MEDS ORDERED: ALBUMIN 25% 50 ML IV ONE (05:38)
[2021-05-27] MEDS: ALBUMIN 25% 50 ML IV SCH ×3 (05:45→21:14)
[2021-05-27 06:22] LABS: Basophils # (auto) 0.1 10 ^3/uL (0-0.2); Basophils % (auto) 0.9 % (0.0-2.0); Eosinophils # (auto) 0 10 ^3/uL (0-0.8); Eosinophils % (auto) 0.4 % (0.0-7.0); Hematocrit 28.9 % (36.0-46.0); Hemoglobin 9.8 g/dL (12.2-16.2); Lymphocytes # (auto) 1.5 10 ^3/uL (0.4-5.4); Lymphocytes % (auto) 11.1 % (10.0-50.0); Mean Corpuscular Hemoglobin 27.3 pg (28.0-32.0); Mean Corpuscular Hgb Conc. 33.8 g/dL (32.0-36.0); Mean Corpuscular Volume 80.9 fL (80.0-100.0); Monocytes # (auto) 1.1 10 ^3/uL (0-1.3); Monocytes % (auto) 8.2 % (0.0-12.0); Neutrophils # (auto) 10.8 10 ^3/uL (1.6-8.6); Neutrophils % (auto) 79.4 % (37.0-80.0); Red Blood Cells 3.57 10^6/uL (4.0-5.20); Red Cell Distribution Width 16.3 % (11.8-14.3); White Blood Cell 13.6 10^3/uL (4.4-10.8)
[2021-05-27 06:47] LABS: Magnesium 1.7 mg/dL (1.6-2.6)
[2021-05-27 06:53] LABS: Phosphorus 3.8 mg/dL (2.5-4.90)
[2021-05-27 06:59] LABS: INR 1.04 (0.9-1.15); Partial Thromboplastin Time 26.6 sec (23.6-33.0)
[2021-05-27] MEDS: ceFAZolin 1GM/50ML 50 ML IV SCH ×3 (06:59→22:42)
[2021-05-27] MEDS: CALCIUM W/VIT D (600MG/400IU) TAB PO SCH ×2 (08:00→19:51)
[2021-05-27 08:33] VITALS: BP 112/62
[2021-05-27] MEDS: ZINC SULFATE 220mg CAP or TAB PO SCH (10:00)
[2021-05-27] MEDS: DULoxetine HCL 30 MG CAP PO SCH (10:00)
[2021-05-27] MEDS: BENAZEPRIL HCL 10 MG TAB PO SCH (10:00)
[2021-05-27] MEDS: CHOLECALCIFEROL (VITD3) 2,000 UNIT CAP/TAB PO SCH (10:00)
[2021-05-27] MEDS: NIFEdipine ER 30 MG TAB PO SCH (10:00)
[2021-05-27] MEDS: ASCORBIC ACID 1,000 MG TAB PO SCH (10:00)
[2021-05-27] MEDS: METOPROLOL SUCCINATE XL 50 MG TAB PO SCH (10:00)
[2021-05-27] MEDS: MEGESTROL ACET 400MG/10ML ORAL SUSP PO SCH ×2 (10:00→21:13)
[2021-05-27] MEDS ORDERED: ASPirin 81 mg TAB PO SCH (10:00)
[2021-05-27] MEDS ORDERED: ENOXAPARIN SOD 40 MG/0.4 ML SYRINGE SC SCH (10:00)
[2021-05-27] MEDS: MORPHINE SULFATE INJECTION 2 MG/ML SYRG IV PRN ×3 (10:05→19:52)
[2021-05-27] MEDS: DexAMETHasone SOD PHOS 10MG/1ML VIAL INJ IV SCH (10:41)
[2021-05-27] MEDS: PANTOPRAZOLE 40 MG/10 ML VIAL INJ IV SCH (10:41)
[2021-05-27 11:52] VITALS: BP 124/69
[2021-05-27] MEDS: SODIUM CHLORIDE 0.9% 1,000 ML IV SCH (13:45)
[2021-05-27 16:53] VITALS: BP 103/66
[2021-05-27] MEDS ORDERED: IOHEXOL 350 MG/ML 100ML IJ ONE (18:02)
[2021-05-27] MEDS: ATORVASTATIN 20 MG TAB PO SCH (21:13)
[2021-05-27 21:35] VITALS: BP 150/84
[2021-05-27] MEDS: BUDESONIDE (INHALATION) 180 MCG IH IN SCH (22:06)
[2021-05-27] MEDS: LATANOPROST 0.005 % OPTH(EYE) SOL 2.5ML EACHEYE SCH (22:10)
[2021-05-28] MEDS: SODIUM CHLORIDE 0.9% 1,000 ML IV SCH ×2 (02:35→17:45)
[2021-05-28] MEDS: AZITHROMYCIN 500MG/ 250ML 250 ML IV SCH (04:28)
[2021-05-28 05:34] VITALS: BP 139/83
[2021-05-28] MEDS: MORPHINE SULFATE INJECTION 2 MG/ML SYRG IV PRN ×2 (06:27→11:02)
[2021-05-28] MEDS: ceFAZolin 1GM/50ML 50 ML IV SCH ×3 (06:33→23:07)
[2021-05-28 06:36] LABS: Basophils # (auto) 0 10 ^3/uL (0-0.2); Basophils % (auto) 0.2 % (0.0-2.0); Eosinophils # (auto) 0 10 ^3/uL (0-0.8); Hematocrit 25.7 % (36.0-46.0); Hemoglobin 8.5 g/dL (12.2-16.2); Lymphocytes # (auto) 1.1 10 ^3/uL (0.4-5.4); Lymphocytes % (auto) 7.5 % (10.0-50.0); Mean Corpuscular Hemoglobin 26.5 pg (28.0-32.0); Mean Corpuscular Volume 80.2 fL (80.0-100.0); Monocytes # (auto) 1.3 10 ^3/uL (0-1.3); Monocytes % (auto) 8.8 % (0.0-12.0); Neutrophils # (auto) 12.1 10 ^3/uL (1.6-8.6); Neutrophils % (auto) 83.5 % (37.0-80.0); Red Cell Distribution Width 16.7 % (11.8-14.3); White Blood Cell 14.4 10^3/uL (4.4-10.8)
[2021-05-28 06:52] LABS: Potassium 3.7 mmol/L (3.5-5.1)
[2021-05-28 07:02] LABS: Albumin 3.5 g/dL (3.4-5.0); BUN/Creatinine Ratio 27.1; Bilirubin, Total 0.7 mg/dL (0.2-1.0); Calcium 8.7 mg/dL (8.5-10.1); Total Protein 5.9 g/dL (6.4-8.2)
[2021-05-28] MEDS ORDERED: BUPIVACAINE W/ EPINEPH 0.25% INJ 50ML MDV ONE ×2 (07:17→07:53)
[2021-05-28] MEDS ORDERED: TRANEXAMIC ACID 20 ML ONE (07:53)
[2021-05-28 09:00] VITALS: BP 169/86
[2021-05-28] MEDS ORDERED: HEPARIN SODIUM (PORCINE) 5000 UNITS/ML 1ML VIAL IV ONE (09:30)
[2021-05-28] MEDS: PANTOPRAZOLE 40 MG/10 ML VIAL INJ IV SCH (09:33)
[2021-05-28] MEDS: ZINC SULFATE 220mg CAP or TAB PO SCH (09:33)
[2021-05-28] MEDS: CALCIUM W/VIT D (600MG/400IU) TAB PO SCH ×2 (09:33→17:44)
[2021-05-28] MEDS: DexAMETHasone SOD PHOS 10MG/1ML VIAL INJ IV SCH (09:33)
[2021-05-28] MEDS: BENAZEPRIL HCL 10 MG TAB PO SCH (09:34)
[2021-05-28] MEDS: BUDESONIDE (INHALATION) 180 MCG IH IN SCH ×2 (09:34→20:33)
[2021-05-28] MEDS: ALBUTEROL SULF HFA 90MCG INH 200DOSE IN PRN ×2 (09:34→20:33)
[2021-05-28] MEDS: DULoxetine HCL 30 MG CAP PO SCH (09:34)
[2021-05-28] MEDS: NIFEdipine ER 30 MG TAB PO SCH (09:35)
[2021-05-28] MEDS: MEGESTROL ACET 400MG/10ML ORAL SUSP PO SCH ×2 (09:35→21:56)
[2021-05-28] MEDS: ASCORBIC ACID 1,000 MG TAB PO SCH (09:36)
[2021-05-28] MEDS: CHOLECALCIFEROL (VITD3) 2,000 UNIT CAP/TAB PO SCH (09:36)
[2021-05-28] MEDS: METOPROLOL SUCCINATE XL 50 MG TAB PO SCH (09:36)
[2021-05-28 10:00] LABS: Basophils # (auto) 0.1 10 ^3/uL (0-0.2); Basophils % (auto) 0.5 % (0.0-2.0); Eosinophils # (auto) 0 10 ^3/uL (0-0.8); Hematocrit 26.7 % (36.0-46.0); Hemoglobin 8.9 g/dL (12.2-16.2); Lymphocytes # (auto) 1.1 10 ^3/uL (0.4-5.4); Lymphocytes % (auto) 7.9 % (10.0-50.0); Mean Corpuscular Hgb Conc. 33.6 g/dL (32.0-36.0); Mean Corpuscular Volume 80.5 fL (80.0-100.0); Monocytes # (auto) 1.2 10 ^3/uL (0-1.3); Monocytes % (auto) 8.8 % (0.0-12.0); Neutrophils # (auto) 11.3 10 ^3/uL (1.6-8.6); Neutrophils % (auto) 82.8 % (37.0-80.0); Red Blood Cells 3.31 10^6/uL (4.0-5.20); Red Cell Distribution Width 16.8 % (11.8-14.3); White Blood Cell 13.7 10^3/uL (4.4-10.8)
[2021-05-28] MEDS ORDERED: APIXABAN 5 MG TAB PO SCH ×2 (10:00)
[2021-05-28] MEDS ORDERED: ASPirin 81 mg TAB PO ONE (10:30)
[2021-05-28] MEDS: HEPARIN DRIP/D5W 100UNITS/ML 250 ML IV SCH (11:00)
[2021-05-28] MEDS: HYDROcodone-ACET 5/325MG TAB PO PRN ×3 (12:51→21:58)
[2021-05-28 13:00] VITALS: BP 146/70
[2021-05-28] MEDS ORDERED: REMDESIVIR PER PHARMACY 0 ML IV SCH (15:30)
[2021-05-28 17:00] VITALS: BP 93/58
[2021-05-28] MEDS ORDERED: REMDESIVIR 200 MG in NS 210ml LOADING DOSE ADULT IV ONE (17:00)
[2021-05-28 21:20] LABS: INR 1.07 (0.9-1.15); Partial Thromboplastin Time 52.3 sec (23.6-33.0)
[2021-05-28] MEDS: LATANOPROST 0.005 % OPTH(EYE) SOL 2.5ML EACHEYE SCH (21:55)
[2021-05-28] MEDS: ATORVASTATIN 20 MG TAB PO SCH (21:55)
[2021-05-28 22:00] VITALS: BP 90/52
[2021-05-29 03:05] LABS: INR 1.05 (0.9-1.15); Partial Thromboplastin Time 54.1 sec (23.6-33.0)
[2021-05-29] MEDS: AZITHROMYCIN 500MG/ 250ML 250 ML IV SCH (04:17)
[2021-05-29] MEDS: SODIUM CHLORIDE 0.9% 1,000 ML IV SCH ×2 (04:21→22:35)
[2021-05-29 05:00] VITALS: BP 109/53
[2021-05-29] MEDS: MORPHINE SULFATE INJECTION 2 MG/ML SYRG IV PRN ×2 (06:19→22:03)
[2021-05-29] MEDS: ceFAZolin 1GM/50ML 50 ML IV SCH ×3 (06:31→22:08)
[2021-05-29 07:44] LABS: Basophils # (auto) 0 10 ^3/uL (0-0.2); Basophils % (auto) 0.1 % (0.0-2.0); Eosinophils # (auto) 0 10 ^3/uL (0-0.8); Hematocrit 23.6 % (36.0-46.0); Lymphocytes # (auto) 0.8 10 ^3/uL (0.4-5.4); Lymphocytes % (auto) 8.1 % (10.0-50.0); Monocytes # (auto) 0.8 10 ^3/uL (0-1.3)
[2021-05-29 07:46] LABS: Mean Corpuscular Hemoglobin 27.1 pg (28.0-32.0); Mean Corpuscular Hgb Conc. 33.8 g/dL (32.0-36.0); Mean Corpuscular Volume 80.3 fL (80.0-100.0); Monocytes % (auto) 7.8 % (0.0-12.0); Neutrophils # (auto) 8.9 10 ^3/uL (1.6-8.6); Red Blood Cells 2.94 10^6/uL (4.0-5.20); Red Cell Distribution Width 17.1 % (11.8-14.3); White Blood Cell 10.5 10^3/uL (4.4-10.8)
[2021-05-29 07:48] LABS: Calcium 8.9 mg/dL (8.5-10.1); Potassium 3.9 mmol/L (3.5-5.1)
[2021-05-29 07:58] LABS: BUN/Creatinine Ratio 35.2; Bilirubin, Total 0.3 mg/dL (0.2-1.0); Total Protein 5.4 g/dL (6.4-8.2)
[2021-05-29 09:00] VITALS: BP 107/62
[2021-05-29 09:10] LABS: INR 1.07 (0.9-1.15)
[2021-05-29] MEDS: BUDESONIDE (INHALATION) 180 MCG IH IN SCH ×2 (09:32→22:25)
[2021-05-29] MEDS: ALBUTEROL SULF HFA 90MCG INH 200DOSE IN PRN (09:32)
[2021-05-29] MEDS: METOPROLOL SUCCINATE XL 50 MG TAB PO SCH (10:00)
[2021-05-29] MEDS: ASPirin 81 mg TAB PO SCH (10:00)
[2021-05-29] MEDS: ASCORBIC ACID 1,000 MG TAB PO SCH (10:37)
[2021-05-29] MEDS: CHOLECALCIFEROL (VITD3) 2,000 UNIT CAP/TAB PO SCH (10:37)
[2021-05-29] MEDS: NIFEdipine ER 30 MG TAB PO SCH (10:39)
[2021-05-29] MEDS: MEGESTROL ACET 400MG/10ML ORAL SUSP PO SCH ×2 (10:41→21:55)
[2021-05-29] MEDS: DexAMETHasone SOD PHOS 10MG/1ML VIAL INJ IV SCH (10:43)
[2021-05-29] MEDS: PANTOPRAZOLE 40 MG/10 ML VIAL INJ IV SCH (10:44)
[2021-05-29] MEDS: ZINC SULFATE 220mg CAP or TAB PO SCH (10:44)
[2021-05-29] MEDS: DULoxetine HCL 30 MG CAP PO SCH (10:45)
[2021-05-29] MEDS: BENAZEPRIL HCL 10 MG TAB PO SCH (10:46)
[2021-05-29] MEDS: CALCIUM W/VIT D (600MG/400IU) TAB PO SCH ×2 (10:46→18:00)
[2021-05-29] MEDS: HYDROcodone-ACET 5/325MG TAB PO PRN ×2 (12:31→19:53)
[2021-05-29 13:00] VITALS: BP 127/65
[2021-05-29] MEDS: HEPARIN DRIP/D5W 100UNITS/ML 250 ML IV SCH ×2 (15:30→17:00)
[2021-05-29 17:00] VITALS: BP 111/63
[2021-05-29] MEDS: REMDESIVIR 100mg 100 MG in SODIUM CHL 0.9% 230 ML IV SCH (17:00)
[2021-05-29] MEDS ORDERED: SODIUM CHLORIDE 0.9% 500 ML IV ONE (21:00)
[2021-05-29] MEDS ORDERED: ACETAMINOPHEN 325 MG TAB PO PRN (21:00)
[2021-05-29 21:46] VITALS: BP 90/50
[2021-05-29] MEDS: ATORVASTATIN 20 MG TAB PO SCH (21:54)
[2021-05-29] MEDS: LATANOPROST 0.005 % OPTH(EYE) SOL 2.5ML EACHEYE SCH (21:54)
[2021-05-30] VITALS (12 sets, daily range): BP systolic 100–143; BP diastolic 54–78
[2021-05-30] MEDS: AZITHROMYCIN 500MG/ 250ML 250 ML IV SCH ×2 (04:28→08:55)
[2021-05-30] MEDS: MORPHINE SULFATE INJECTION 2 MG/ML SYRG IV PRN ×4 (04:29→17:52)
[2021-05-30] MEDS: ceFAZolin 1GM/50ML 50 ML IV SCH ×3 (06:22→23:00)
[2021-05-30 06:35] LABS: Basophils # (auto) 0 10 ^3/uL (0-0.2); Eosinophils # (auto) 0 10 ^3/uL (0-0.8); Hemoglobin 7.4 g/dL (12.2-16.2); Neutrophils # (auto) 6.6 10 ^3/uL (1.6-8.6)
[2021-05-30 06:37] LABS: Basophils % (auto) 0.2 % (0.0-2.0); Eosinophils % (auto) 0.3 % (0.0-7.0); Hematocrit 22.2 % (36.0-46.0); Lymphocytes % (auto) 12.6 % (10.0-50.0); Mean Corpuscular Hemoglobin 27.2 pg (28.0-32.0); Mean Corpuscular Hgb Conc. 33.5 g/dL (32.0-36.0); Mean Corpuscular Volume 81.3 fL (80.0-100.0); Monocytes # (auto) 0.7 10 ^3/uL (0-1.3); Monocytes % (auto) 8.1 % (0.0-12.0); Neutrophils % (auto) 78.8 % (37.0-80.0); Red Blood Cells 2.73 10^6/uL (4.0-5.20); Red Cell Distribution Width 16.6 % (11.8-14.3); White Blood Cell 8.4 10^3/uL (4.4-10.8)
[2021-05-30 07:06] LABS: Potassium 4.2 mmol/L (3.5-5.1)
[2021-05-30 07:10] LABS: Albumin 2.6 g/dL (3.4-5.0); BUN/Creatinine Ratio 34.1
[2021-05-30 07:12] LABS: Bilirubin, Total 0.3 mg/dL (0.2-1.0); Total Protein 4.8 g/dL (6.4-8.2)
[2021-05-30] MEDS: CALCIUM W/VIT D (600MG/400IU) TAB PO SCH ×2 (08:00→18:49)
[2021-05-30] MEDS ORDERED: TETRACAINE 1% INJ 2 ML VIAL IJ ONE (08:20)
[2021-05-30] MEDS ORDERED: MORPHINE SULF PF 2 MG/2 ML SYRG ONE (08:24)
[2021-05-30] MEDS ORDERED: fentaNYL CITRATE 100 MCG/2 ML VL ONE (08:24)
[2021-05-30] MEDS ORDERED: MIDAZOLAM HCL 2MG/2ML 2ml VIAL (1mg/ml) ONE (08:24)
[2021-05-30] MEDS ORDERED: LIDOCAINE 2% (LOCAL ANESTH.) PF 5ml SDV ONE (08:25)
[2021-05-30] MEDS ORDERED: PROPOFOL 10 MG/ML 20 ML IV ONE (08:25)
[2021-05-30] MEDS ORDERED: ONDANSETRON HCL 4 MG/2 ML VIAL ONE (08:25)
[2021-05-30] MEDS ORDERED: ceFAZolin 1GM/50ML 100 ML IV ONE (09:16)
[2021-05-30] MEDS: ALBUTEROL SULF HFA 90MCG INH 200DOSE IN PRN ×2 (09:49→23:14)
[2021-05-30] MEDS: BUDESONIDE (INHALATION) 180 MCG IH IN SCH ×2 (09:50→22:00)
[2021-05-30] MEDS: NIFEdipine ER 30 MG TAB PO SCH (10:00)
[2021-05-30] MEDS: ZINC SULFATE 220mg CAP or TAB PO SCH (10:00)
[2021-05-30] MEDS: PANTOPRAZOLE 40 MG/10 ML VIAL INJ IV SCH (10:00)
[2021-05-30] MEDS: MEGESTROL ACET 400MG/10ML ORAL SUSP PO SCH ×2 (10:00→22:14)
[2021-05-30] MEDS: ASPirin 81 mg TAB PO SCH (10:00)
[2021-05-30] MEDS: ASCORBIC ACID 1,000 MG TAB PO SCH (10:00)
[2021-05-30] MEDS: DexAMETHasone SOD PHOS 10MG/1ML VIAL INJ IV SCH (10:00)
[2021-05-30] MEDS: BENAZEPRIL HCL 10 MG TAB PO SCH (10:00)
[2021-05-30] MEDS: DULoxetine HCL 30 MG CAP PO SCH (10:00)
[2021-05-30] MEDS: METOPROLOL SUCCINATE XL 50 MG TAB PO SCH (10:00)
[2021-05-30] MEDS: CHOLECALCIFEROL (VITD3) 2,000 UNIT CAP/TAB PO SCH (10:00)
[2021-05-30] MEDS: SODIUM CHLORIDE 0.9% 1,000 ML IV SCH ×2 (10:20→23:40)
[2021-05-30] MEDS ORDERED: NALOXONE HCL 0.4 MG/ML VIAL IV PRN (11:30)
[2021-05-30] MEDS ORDERED: NALBUPHINE HCL 10 MG/1ml INJECTION SUBCUT ONE (11:30)
[2021-05-30] MEDS ORDERED: KETOROLAC TROMETH 30 MG/ML 1ML VIAL IV PRN (11:30)
[2021-05-30] MEDS ORDERED: diphenhdrAMINE HCL 50 MG/1 ML VL IV PRN (11:30)
[2021-05-30] MEDS ORDERED: HYDROmorphone HCL 2 MG/ML VL IV PRN (11:30)
[2021-05-30] MEDS ORDERED: DexAMETHasone SOD PHOS 10MG/1ML VIAL INJ IV PRN (11:30)
[2021-05-30] MEDS: REMDESIVIR 100mg 100 MG in SODIUM CHL 0.9% 230 ML IV SCH (15:59)
[2021-05-30] MEDS: HEPARIN DRIP/D5W 100UNITS/ML 250 ML IV SCH (17:00)
[2021-05-30] MEDS: ATORVASTATIN 20 MG TAB PO SCH (22:14)
[2021-05-30] MEDS: LATANOPROST 0.005 % OPTH(EYE) SOL 2.5ML EACHEYE SCH (22:14)
[2021-05-30] MEDS: HYDROcodone-ACET 5/325MG TAB PO PRN (22:15)
[2021-05-30 23:41] LABS: INR 1.16 (0.9-1.15); Partial Thromboplastin Time 27.3 sec (23.6-33.0)
[2021-05-31] VITALS (10 sets, daily range): BP systolic 129–169; BP diastolic 72–90
[2021-05-31] MEDS: HYDROcodone-ACET 5/325MG TAB PO PRN (03:10)
[2021-05-31] MEDS: AZITHROMYCIN 500MG/ 250ML 250 ML IV SCH (05:30)
[2021-05-31] MEDS: BUDESONIDE (INHALATION) 180 MCG IH IN SCH ×2 (05:57→22:35)
[2021-05-31] MEDS: ALBUTEROL SULF HFA 90MCG INH 200DOSE IN PRN (05:58)
[2021-05-31] MEDS ORDERED: hydrALAZINE HCL 20 MG/ML VL IV PRN (07:00)
[2021-05-31 07:02] LABS: Basophils # (auto) 0 10 ^3/uL (0-0.2); Basophils % (auto) 0.3 % (0.0-2.0); Eosinophils # (auto) 0.1 10 ^3/uL (0-0.8); Eosinophils % (auto) 0.6 % (0.0-7.0); Hematocrit 36.3 % (36.0-46.0); Hemoglobin 12.5 g/dL (12.2-16.2); Lymphocytes # (auto) 0.8 10 ^3/uL (0.4-5.4); Lymphocytes % (auto) 7.4 % (10.0-50.0); Mean Corpuscular Hemoglobin 28.8 pg (28.0-32.0); Mean Corpuscular Hgb Conc. 34.4 g/dL (32.0-36.0); Mean Corpuscular Volume 83.5 fL (80.0-100.0); Monocytes # (auto) 0.7 10 ^3/uL (0-1.3); Monocytes % (auto) 7.1 % (0.0-12.0); Neutrophils # (auto) 8.8 10 ^3/uL (1.6-8.6); Neutrophils % (auto) 84.6 % (37.0-80.0); Nucleated Red Blood Cells % 0.1 %; Red Blood Cells 4.34 10^6/uL (4.0-5.20); Red Cell Distribution Width 17.5 % (11.8-14.3); White Blood Cell 10.3 10^3/uL (4.4-10.8)
[2021-05-31 07:16] LABS: INR 1.19 (0.9-1.15); Partial Thromboplastin Time 31.1 sec (23.6-33.0)
[2021-05-31 07:23] LABS: Potassium 3.8 mmol/L (3.5-5.1)
[2021-05-31 07:36] LABS: Albumin 2.7 g/dL (3.4-5.0); Bilirubin, Total 0.6 mg/dL (0.2-1.0); CRP High Sensitivity 4.99 mg/dL (< 0.3); Calcium 8.1 mg/dL (8.5-10.1); Total Protein 5.1 g/dL (6.4-8.2)
[2021-05-31] MEDS ORDERED: HEPARIN SODIUM (PORCINE) 5000 UNITS/ML 1ML VIAL IV ONE (08:00)
[2021-05-31] MEDS ORDERED: HEPARIN DRIP/D5W 100UNITS/ML 250 ML IV SCH (08:00)
[2021-05-31] MEDS: MORPHINE SULFATE INJECTION 2 MG/ML SYRG IV PRN ×3 (08:24→18:58)
[2021-05-31] MEDS: ceFAZolin 1GM/50ML 50 ML IV SCH ×3 (08:34→23:25)
[2021-05-31] MEDS: ASCORBIC ACID 1,000 MG TAB PO SCH (08:36)
[2021-05-31] MEDS: CHOLECALCIFEROL (VITD3) 2,000 UNIT CAP/TAB PO SCH (08:36)
[2021-05-31] MEDS: METOPROLOL SUCCINATE XL 50 MG TAB PO SCH (08:37)
[2021-05-31] MEDS: NIFEdipine ER 30 MG TAB PO SCH (08:38)
[2021-05-31] MEDS: MEGESTROL ACET 400MG/10ML ORAL SUSP PO SCH ×2 (08:38→22:13)
[2021-05-31] MEDS: DULoxetine HCL 30 MG CAP PO SCH (08:39)
[2021-05-31] MEDS: BENAZEPRIL HCL 10 MG TAB PO SCH (08:39)
[2021-05-31] MEDS: ZINC SULFATE 220mg CAP or TAB PO SCH (08:39)
[2021-05-31] MEDS: CALCIUM W/VIT D (600MG/400IU) TAB PO SCH ×2 (08:40→18:42)
[2021-05-31] MEDS: ASPirin 81 mg TAB PO SCH (08:40)
[2021-05-31] MEDS: PANTOPRAZOLE 40 MG/10 ML VIAL INJ IV SCH (08:40)
[2021-05-31] MEDS: DexAMETHasone SOD PHOS 10MG/1ML VIAL INJ IV SCH (08:40)
[2021-05-31 08:45] LABS: INR 1.21 (0.9-1.15); Partial Thromboplastin Time 32.4 sec (23.6-33.0)
[2021-05-31] MEDS ORDERED: ALBUTEROL SULF HFA 90MCG INH 200DOSE IN SCH (14:00)
[2021-05-31] MEDS: REMDESIVIR 100mg 100 MG in SODIUM CHL 0.9% 230 ML IV SCH (15:00)
[2021-05-31] MEDS: SODIUM CHLORIDE 0.9% 1,000 ML IV SCH (15:13)
[2021-05-31 16:37] LABS: INR 1.22 (0.9-1.15); Partial Thromboplastin Time 60.7 sec (23.6-33.0)
[2021-05-31] MEDS: LATANOPROST 0.005 % OPTH(EYE) SOL 2.5ML EACHEYE SCH (22:12)
[2021-05-31] MEDS: ENOXAPARIN SOD 60 MG/0.6 ML SYRINGE SC SCH (22:12)
[2021-05-31] MEDS: ATORVASTATIN 20 MG TAB PO SCH (22:13)
[2021-06-01] MEDS: ALBUTEROL SULF HFA 90MCG INH 200DOSE IN PRN ×2 (00:40→08:54)
[2021-06-01] MEDS: SODIUM CHLORIDE 0.9% 1,000 ML IV SCH ×2 (02:20→17:04)
[2021-06-01] MEDS: MORPHINE SULFATE INJECTION 2 MG/ML SYRG IV PRN ×4 (04:10→19:13)
[2021-06-01 05:00] VITALS: BP 133/75
[2021-06-01] MEDS: ceFAZolin 1GM/50ML 50 ML IV SCH ×3 (07:00→22:36)
[2021-06-01 07:49] LABS: Calcium 8.2 mg/dL (8.5-10.1); Potassium 4.1 mmol/L (3.5-5.1)
[2021-06-01 07:55] LABS: Albumin 2.5 g/dL (3.4-5.0); BUN/Creatinine Ratio 31.1; Bilirubin, Total 0.6 mg/dL (0.2-1.0)
[2021-06-01] MEDS: BUDESONIDE (INHALATION) 180 MCG IH IN SCH ×2 (07:55→18:59)
[2021-06-01 09:00] VITALS: BP 143/75
[2021-06-01] MEDS: DexAMETHasone SOD PHOS 10MG/1ML VIAL INJ IV SCH (09:25)
[2021-06-01] MEDS: PANTOPRAZOLE 40 MG/10 ML VIAL INJ IV SCH (09:25)
[2021-06-01] MEDS: ASPirin 81 mg TAB PO SCH (09:25)
[2021-06-01] MEDS: CALCIUM W/VIT D (600MG/400IU) TAB PO SCH ×2 (09:25→17:04)
[2021-06-01] MEDS: ENOXAPARIN SOD 60 MG/0.6 ML SYRINGE SC SCH ×2 (09:25→22:35)
[2021-06-01] MEDS: MEGESTROL ACET 400MG/10ML ORAL SUSP PO SCH ×3 (09:26→22:53)
[2021-06-01] MEDS: DULoxetine HCL 30 MG CAP PO SCH (09:26)
[2021-06-01] MEDS: ZINC SULFATE 220mg CAP or TAB PO SCH (09:26)
[2021-06-01] MEDS: CHOLECALCIFEROL (VITD3) 2,000 UNIT CAP/TAB PO SCH (09:26)
[2021-06-01] MEDS: ASCORBIC ACID 1,000 MG TAB PO SCH (09:26)
[2021-06-01] MEDS: BENAZEPRIL HCL 10 MG TAB PO SCH (09:29)
[2021-06-01] MEDS: NIFEdipine ER 30 MG TAB PO SCH (09:29)
[2021-06-01] MEDS: METOPROLOL SUCCINATE XL 50 MG TAB PO SCH (09:30)
[2021-06-01 13:00] VITALS: BP 127/71
[2021-06-01] MEDS: REMDESIVIR 100mg 100 MG in SODIUM CHL 0.9% 230 ML IV SCH (15:28)
[2021-06-01 17:00] VITALS: BP 117/67
[2021-06-01 22:00] VITALS: BP 128/70
[2021-06-01] MEDS: LATANOPROST 0.005 % OPTH(EYE) SOL 2.5ML EACHEYE SCH (22:35)
[2021-06-01] MEDS: ATORVASTATIN 20 MG TAB PO SCH ×2 (22:35→22:53)
[2021-06-01] MEDS: ONDANSETRON HCL 4 MG/2 ML VIAL IV PRN (22:36)
[2021-06-02] MEDS: MORPHINE SULFATE INJECTION 2 MG/ML SYRG IV PRN ×5 (01:05→22:12)
[2021-06-02] MEDS: ALBUTEROL SULF HFA 90MCG INH 200DOSE IN PRN ×2 (01:52→08:37)
[2021-06-02 05:00] VITALS: BP 143/75
[2021-06-02] MEDS: SODIUM CHLORIDE 0.9% 1,000 ML IV SCH ×2 (05:00→18:46)
[2021-06-02] MEDS: ceFAZolin 1GM/50ML 50 ML IV SCH ×3 (06:33→22:12)
[2021-06-02] MEDS: BUDESONIDE (INHALATION) 180 MCG IH IN SCH ×2 (08:37→18:55)
[2021-06-02 09:00] VITALS: BP 144/71
[2021-06-02] MEDS: DexAMETHasone SOD PHOS 10MG/1ML VIAL INJ IV SCH (10:02)
[2021-06-02] MEDS: ENOXAPARIN SOD 60 MG/0.6 ML SYRINGE SC SCH ×2 (10:02→22:10)
[2021-06-02] MEDS: ASPirin 81 mg TAB PO SCH (10:03)
[2021-06-02] MEDS: BENAZEPRIL HCL 10 MG TAB PO SCH (10:05)
[2021-06-02] MEDS: PANTOPRAZOLE 40 MG/10 ML VIAL INJ IV SCH (10:06)
[2021-06-02] MEDS: CALCIUM W/VIT D (600MG/400IU) TAB PO SCH ×2 (10:06→17:27)
[2021-06-02] MEDS: ZINC SULFATE 220mg CAP or TAB PO SCH (10:07)
[2021-06-02] MEDS: MEGESTROL ACET 400MG/10ML ORAL SUSP PO SCH ×2 (10:08→22:11)
[2021-06-02] MEDS: NIFEdipine ER 30 MG TAB PO SCH (10:08)
[2021-06-02] MEDS: DULoxetine HCL 30 MG CAP PO SCH (10:08)
[2021-06-02] MEDS: ASCORBIC ACID 1,000 MG TAB PO SCH (10:09)
[2021-06-02] MEDS: CHOLECALCIFEROL (VITD3) 2,000 UNIT CAP/TAB PO SCH (10:09)
[2021-06-02] MEDS: METOPROLOL SUCCINATE XL 50 MG TAB PO SCH (10:09)
[2021-06-02 13:00] VITALS: BP 144/63
[2021-06-02 19:01] LABS: Basophils # (auto) 0.1 10 ^3/uL (0-0.2); Basophils % (auto) 0.6 % (0.0-2.0); Eosinophils # (auto) 0 10 ^3/uL (0-0.8); Hematocrit 26.4 % (36.0-46.0); Hemoglobin 9.2 g/dL (12.2-16.2); Lymphocytes # (auto) 0.5 10 ^3/uL (0.4-5.4); Lymphocytes % (auto) 3.8 % (10.0-50.0); Mean Corpuscular Hemoglobin 28.9 pg (28.0-32.0); Mean Corpuscular Hgb Conc. 34.8 g/dL (32.0-36.0); Mean Corpuscular Volume 83.1 fL (80.0-100.0); Monocytes # (auto) 0.8 10 ^3/uL (0-1.3); Monocytes % (auto) 6.1 % (0.0-12.0); Neutrophils # (auto) 11.7 10 ^3/uL (1.6-8.6); Neutrophils % (auto) 89.5 % (37.0-80.0); Red Blood Cells 3.18 10^6/uL (4.0-5.20); Red Cell Distribution Width 18.3 % (11.8-14.3)
[2021-06-02 22:00] VITALS: BP 106/61
[2021-06-02] MEDS: LATANOPROST 0.005 % OPTH(EYE) SOL 2.5ML EACHEYE SCH (22:11)
[2021-06-02] MEDS: ATORVASTATIN 20 MG TAB PO SCH (22:11)
[2021-06-03 05:00] VITALS: BP 114/65
[2021-06-03] MEDS: BUDESONIDE (INHALATION) 180 MCG IH IN SCH ×3 (05:56→20:29)
[2021-06-03] MEDS: ALBUTEROL SULF HFA 90MCG INH 200DOSE IN PRN ×2 (05:56→20:29)
[2021-06-03] MEDS: ceFAZolin 1GM/50ML 50 ML IV SCH ×2 (07:00→15:25)
[2021-06-03] MEDS: SODIUM CHLORIDE 0.9% 1,000 ML IV SCH ×2 (07:49→21:00)
[2021-06-03 08:15] VITALS: BP 111/53
[2021-06-03] MEDS: CALCIUM W/VIT D (600MG/400IU) TAB PO SCH ×2 (08:49→18:07)
[2021-06-03] MEDS: ENOXAPARIN SOD 60 MG/0.6 ML SYRINGE SC SCH (08:49)
[2021-06-03] MEDS: MORPHINE SULFATE INJECTION 2 MG/ML SYRG IV PRN ×2 (08:50→17:28)
[2021-06-03 09:00] VITALS: BP 111/53
[2021-06-03] MEDS: ZINC SULFATE 220mg CAP or TAB PO SCH (09:53)
[2021-06-03] MEDS: DULoxetine HCL 30 MG CAP PO SCH (09:53)
[2021-06-03] MEDS: ASPirin 81 mg TAB PO SCH (09:53)
[2021-06-03] MEDS: PANTOPRAZOLE 40 MG/10 ML VIAL INJ IV SCH (09:53)
[2021-06-03] MEDS: DexAMETHasone SOD PHOS 10MG/1ML VIAL INJ IV SCH (09:53)
[2021-06-03] MEDS: METOPROLOL SUCCINATE XL 50 MG TAB PO SCH (09:54)
[2021-06-03] MEDS: MEGESTROL ACET 400MG/10ML ORAL SUSP PO SCH (09:54)
[2021-06-03] MEDS: NIFEdipine ER 30 MG TAB PO SCH (09:54)
[2021-06-03] MEDS: BENAZEPRIL HCL 10 MG TAB PO SCH (09:54)
[2021-06-03] MEDS: CHOLECALCIFEROL (VITD3) 2,000 UNIT CAP/TAB PO SCH (09:55)
[2021-06-03] MEDS: ASCORBIC ACID 1,000 MG TAB PO SCH (09:55)
[2021-06-03 16:45] VITALS: BP 113/55
[2021-06-03 20:00] VITALS: BP 111/53
[2021-06-03 22:00] VITALS: BP 111/61
[2021-06-04] MEDS: ENOXAPARIN SOD 60 MG/0.6 ML SYRINGE SC SCH ×3 (01:09→21:56)
[2021-06-04] MEDS: ATORVASTATIN 20 MG TAB PO SCH ×2 (01:10→21:55)
[2021-06-04] MEDS: MEGESTROL ACET 400MG/10ML ORAL SUSP PO SCH ×3 (01:10→21:56)
[2021-06-04] MEDS: LATANOPROST 0.005 % OPTH(EYE) SOL 2.5ML EACHEYE SCH ×2 (01:10→22:00)
[2021-06-04] MEDS: ceFAZolin 1GM/50ML 50 ML IV SCH ×4 (01:11→22:36)
[2021-06-04 05:00] VITALS: BP 117/61
[2021-06-04] MEDS: ALBUTEROL SULF HFA 90MCG INH 200DOSE IN PRN (05:42)
[2021-06-04] MEDS: BUDESONIDE (INHALATION) 180 MCG IH IN SCH (05:43)
[2021-06-04] MEDS: CALCIUM W/VIT D (600MG/400IU) TAB PO SCH ×2 (07:50→17:10)
[2021-06-04] MEDS: MORPHINE SULFATE INJECTION 2 MG/ML SYRG IV PRN ×3 (08:07→21:57)
[2021-06-04 08:15] VITALS: BP 116/63
[2021-06-04 09:00] VITALS: BP 116/63
[2021-06-04] MEDS: PANTOPRAZOLE 40 MG/10 ML VIAL INJ IV SCH (09:45)
[2021-06-04] MEDS: DexAMETHasone SOD PHOS 10MG/1ML VIAL INJ IV SCH (09:45)
[2021-06-04] MEDS: ASPirin 81 mg TAB PO SCH (09:45)
[2021-06-04] MEDS: DULoxetine HCL 30 MG CAP PO SCH (09:45)
[2021-06-04] MEDS: BENAZEPRIL HCL 10 MG TAB PO SCH (09:45)
[2021-06-04] MEDS: ZINC SULFATE 220mg CAP or TAB PO SCH (09:45)
[2021-06-04] MEDS: NIFEdipine ER 30 MG TAB PO SCH (09:46)
[2021-06-04] MEDS: ASCORBIC ACID 1,000 MG TAB PO SCH (09:46)
[2021-06-04] MEDS: METOPROLOL SUCCINATE XL 50 MG TAB PO SCH (09:46)
[2021-06-04] MEDS: CHOLECALCIFEROL (VITD3) 2,000 UNIT CAP/TAB PO SCH (09:46)
[2021-06-04] MEDS: SODIUM CHLORIDE 0.9% 1,000 ML IV SCH ×2 (09:47→20:08)
[2021-06-04 13:00] VITALS: BP 110/60
[2021-06-04] MEDS: HYDROcodone-ACET 5/325MG TAB PO PRN (14:02)
[2021-06-04 17:00] VITALS: BP 126/65
[2021-06-04 22:00] VITALS: BP 136/72
[2021-06-04] MEDS: ONDANSETRON HCL 4 MG/2 ML VIAL IV PRN (22:04)
[2021-06-05] MEDS: ONDANSETRON HCL 4 MG/2 ML VIAL IV PRN ×4 (03:06→21:41)
[2021-06-05] MEDS: MORPHINE SULFATE INJECTION 2 MG/ML SYRG IV PRN ×4 (03:08→21:41)
[2021-06-05 05:25] VITALS: BP 141/71
[2021-06-05] MEDS: ALBUTEROL SULF HFA 90MCG INH 200DOSE IN PRN (05:56)
[2021-06-05] MEDS: BUDESONIDE (INHALATION) 180 MCG IH IN SCH (05:57)
[2021-06-05] MEDS: ceFAZolin 1GM/50ML 50 ML IV SCH ×3 (06:38→23:18)
[2021-06-05 08:00] VITALS: BP 129/73
[2021-06-05] MEDS: CALCIUM W/VIT D (600MG/400IU) TAB PO SCH ×2 (08:54→17:57)
[2021-06-05 09:00] VITALS: BP 142/71
[2021-06-05] MEDS: ZINC SULFATE 220mg CAP or TAB PO SCH (10:00)
[2021-06-05] MEDS: DexAMETHasone SOD PHOS 10MG/1ML VIAL INJ IV SCH (10:00)
[2021-06-05] MEDS: CHOLECALCIFEROL (VITD3) 2,000 UNIT CAP/TAB PO SCH (10:00)
[2021-06-05] MEDS: ASCORBIC ACID 1,000 MG TAB PO SCH (10:00)
[2021-06-05] MEDS: PANTOPRAZOLE 40 MG/10 ML VIAL INJ IV SCH (10:17)
[2021-06-05] MEDS: DULoxetine HCL 30 MG CAP PO SCH (10:18)
[2021-06-05] MEDS: ASPirin 81 mg TAB PO SCH (10:18)
[2021-06-05] MEDS: BENAZEPRIL HCL 10 MG TAB PO SCH (10:19)
[2021-06-05] MEDS: MEGESTROL ACET 400MG/10ML ORAL SUSP PO SCH ×2 (10:20→21:37)
[2021-06-05] MEDS: NIFEdipine ER 30 MG TAB PO SCH (10:20)
[2021-06-05] MEDS: METOPROLOL SUCCINATE XL 50 MG TAB PO SCH (10:21)
[2021-06-05 11:45] LABS: Basophils # (auto) 0 10 ^3/uL (0-0.2); Basophils % (auto) 0.2 % (0.0-2.0); Eosinophils # (auto) 0 10 ^3/uL (0-0.8); Eosinophils % (auto) 0.1 % (0.0-7.0); Hematocrit 25.3 % (36.0-46.0); Hemoglobin 8.5 g/dL (12.2-16.2); Lymphocytes # (auto) 1.4 10 ^3/uL (0.4-5.4); Lymphocytes % (auto) 10.2 % (10.0-50.0); Mean Corpuscular Hemoglobin 28.3 pg (28.0-32.0); Mean Corpuscular Hgb Conc. 33.6 g/dL (32.0-36.0); Monocytes # (auto) 1.5 10 ^3/uL (0-1.3); Monocytes % (auto) 10.9 % (0.0-12.0); Neutrophils # (auto) 10.9 10 ^3/uL (1.6-8.6); Neutrophils % (auto) 78.6 % (37.0-80.0); Red Blood Cells 3.01 10^6/uL (4.0-5.20); Red Cell Distribution Width 18.7 % (11.8-14.3); White Blood Cell 13.9 10^3/uL (4.4-10.8)
[2021-06-05] MEDS: SODIUM CHLORIDE 0.9% 1,000 ML IV SCH (12:12)
[2021-06-05 13:00] VITALS: BP 139/75
[2021-06-05] MEDS: ENOXAPARIN SOD 60 MG/0.6 ML SYRINGE SC SCH ×2 (13:25→21:36)
[2021-06-05 18:00] VITALS: BP 125/69
[2021-06-05 18:24] LABS: Hemoglobin 8.3 g/dL (12.2-16.2)
[2021-06-05 18:26] LABS: Basophils # (auto) 0 10 ^3/uL (0-0.2); Basophils % (auto) 0.2 % (0.0-2.0); Eosinophils # (auto) 0 10 ^3/uL (0-0.8); Eosinophils % (auto) 0.2 % (0.0-7.0); Hematocrit 24.4 % (36.0-46.0); Lymphocytes # (auto) 1.3 10 ^3/uL (0.4-5.4); Lymphocytes % (auto) 11.4 % (10.0-50.0); Mean Corpuscular Hemoglobin 28.4 pg (28.0-32.0); Mean Corpuscular Hgb Conc. 33.9 g/dL (32.0-36.0); Mean Corpuscular Volume 83.8 fL (80.0-100.0); Monocytes # (auto) 1.3 10 ^3/uL (0-1.3); Monocytes % (auto) 11.6 % (0.0-12.0); Neutrophils # (auto) 8.6 10 ^3/uL (1.6-8.6); Neutrophils % (auto) 76.6 % (37.0-80.0); Nucleated Red Blood Cells % 0.1 %; Red Blood Cells 2.91 10^6/uL (4.0-5.20); Red Cell Distribution Width 18.2 % (11.8-14.3); White Blood Cell 11.3 10^3/uL (4.4-10.8)
[2021-06-05] MEDS: LATANOPROST 0.005 % OPTH(EYE) SOL 2.5ML EACHEYE SCH (21:37)
[2021-06-05] MEDS: ATORVASTATIN 20 MG TAB PO SCH (21:37)
[2021-06-06 01:36] LABS: Hemoglobin 7.9 g/dL (12.2-16.2)
[2021-06-06 01:37] LABS: Basophils # (auto) 0 10 ^3/uL (0-0.2); Basophils % (auto) 0.3 % (0.0-2.0); Eosinophils # (auto) 0 10 ^3/uL (0-0.8); Eosinophils % (auto) 0.3 % (0.0-7.0); Hematocrit 24.1 % (36.0-46.0); Lymphocytes # (auto) 1.4 10 ^3/uL (0.4-5.4); Lymphocytes % (auto) 11.7 % (10.0-50.0); Mean Corpuscular Hemoglobin 28.1 pg (28.0-32.0); Mean Corpuscular Volume 85.4 fL (80.0-100.0); Monocytes # (auto) 1.1 10 ^3/uL (0-1.3); Monocytes % (auto) 9.5 % (0.0-12.0); Neutrophils % (auto) 78.2 % (37.0-80.0); Red Blood Cells 2.82 10^6/uL (4.0-5.20); Red Cell Distribution Width 18.4 % (11.8-14.3); White Blood Cell 11.6 10^3/uL (4.4-10.8)
[2021-06-06] MEDS: MORPHINE SULFATE INJECTION 2 MG/ML SYRG IV PRN ×3 (01:44→21:12)
[2021-06-06] MEDS: ONDANSETRON HCL 4 MG/2 ML VIAL IV PRN ×3 (01:44→21:13)
[2021-06-06 01:50] VITALS: BP 113/62
[2021-06-06] MEDS: SODIUM CHLORIDE 0.9% 1,000 ML IV SCH ×2 (02:17→15:44)
[2021-06-06 05:00] VITALS: BP 105/64
[2021-06-06 05:59] LABS: Hematocrit 25.5 % (36.0-46.0); Hemoglobin 8.7 g/dL (12.2-16.2); Mean Corpuscular Hemoglobin 28.8 pg (28.0-32.0); Mean Corpuscular Hgb Conc. 34.3 g/dL (32.0-36.0); Mean Corpuscular Volume 84.1 fL (80.0-100.0); Red Blood Cells 3.03 10^6/uL (4.0-5.20); Red Cell Distribution Width 18.3 % (11.8-14.3); White Blood Cell 13.4 10^3/uL (4.4-10.8)
[2021-06-06 06:25] LABS: Basophils % (manual) 0 (0.0-2.0); Blast Cells 0; Metamyelocytes % 0; Promyelocytes % 0; Reactive Lymphocytes 0
[2021-06-06] MEDS: ceFAZolin 1GM/50ML 50 ML IV SCH ×3 (06:41→23:02)
[2021-06-06 07:18] LABS: Band Neutrophils % (manual) 4; Eosinophils % (manual) 1 (0-7); Lymphocytes % (manual) 9 (10.0-50.0); Monocytes % (manual) 6 (0-12); Myelocytes % 1
[2021-06-06] MEDS: CALCIUM W/VIT D (600MG/400IU) TAB PO SCH ×2 (08:00→18:00)
[2021-06-06 09:00] VITALS: BP 106/64
[2021-06-06] MEDS: ENOXAPARIN SOD 60 MG/0.6 ML SYRINGE SC SCH ×2 (09:00→21:11)
[2021-06-06] MEDS: DULoxetine HCL 30 MG CAP PO SCH (10:12)
[2021-06-06] MEDS: ASPirin 81 mg TAB PO SCH (10:13)
[2021-06-06] MEDS: NIFEdipine ER 30 MG TAB PO SCH (10:13)
[2021-06-06] MEDS: ASCORBIC ACID 1,000 MG TAB PO SCH (10:14)
[2021-06-06] MEDS: MEGESTROL ACET 400MG/10ML ORAL SUSP PO SCH ×2 (10:14→21:11)
[2021-06-06] MEDS: PANTOPRAZOLE 40 MG/10 ML VIAL INJ IV SCH (10:14)
[2021-06-06] MEDS: ZINC SULFATE 220mg CAP or TAB PO SCH (10:14)
[2021-06-06] MEDS: CHOLECALCIFEROL (VITD3) 2,000 UNIT CAP/TAB PO SCH (10:14)
[2021-06-06] MEDS: BENAZEPRIL HCL 10 MG TAB PO SCH (10:14)
[2021-06-06] MEDS: DexAMETHasone SOD PHOS 10MG/1ML VIAL INJ IV SCH (10:15)
[2021-06-06] MEDS: METOPROLOL SUCCINATE XL 50 MG TAB PO SCH (10:16)
[2021-06-06 10:25] LABS: % Iron Saturation 19.8 % (15-50)
[2021-06-06] MEDS: HYDROcodone-ACET 5/325MG TAB PO PRN ×2 (12:39→16:12)
[2021-06-06 13:00] VITALS: BP 102/55
[2021-06-06 13:42] LABS: Basophils # (auto) 0 10 ^3/uL (0-0.2); Eosinophils # (auto) 0 10 ^3/uL (0-0.8); Lymphocytes # (auto) 0.5 10 ^3/uL (0.4-5.4); Monocytes # (auto) 0.6 10 ^3/uL (0-1.3); Monocytes % (auto) 4.4 % (0.0-12.0); Neutrophils # (auto) 12.6 10 ^3/uL (1.6-8.6); Red Blood Cells 2.96 10^6/uL (4.0-5.20); White Blood Cell 13.8 10^3/uL (4.4-10.8)
[2021-06-06 13:44] LABS: Basophils % (auto) 0.2 % (0.0-2.0); Eosinophils % (auto) 0.2 % (0.0-7.0); Hematocrit 24.9 % (36.0-46.0); Hemoglobin 8.4 g/dL (12.2-16.2); Lymphocytes % (auto) 3.9 % (10.0-50.0); Mean Corpuscular Hemoglobin 28.3 pg (28.0-32.0); Mean Corpuscular Hgb Conc. 33.5 g/dL (32.0-36.0); Mean Corpuscular Volume 84.2 fL (80.0-100.0); Neutrophils % (auto) 91.3 % (37.0-80.0); Red Cell Distribution Width 18.8 % (11.8-14.3)
[2021-06-06 17:00] VITALS: BP 101/59
[2021-06-06] MEDS: ATORVASTATIN 20 MG TAB PO SCH (21:11)
[2021-06-06] MEDS: LATANOPROST 0.005 % OPTH(EYE) SOL 2.5ML EACHEYE SCH (21:11)
[2021-06-07] MEDS: HYDROcodone-ACET 5/325MG TAB PO PRN ×3 (01:24→13:39)
[2021-06-07] MEDS: SODIUM CHLORIDE 0.9% 1,000 ML IV SCH (04:42)
[2021-06-07] MEDS: ceFAZolin 1GM/50ML 50 ML IV SCH ×2 (06:19→14:15)
[2021-06-07] MEDS: ASPirin 81 mg TAB PO SCH (08:48)
[2021-06-07] MEDS: BENAZEPRIL HCL 10 MG TAB PO SCH (08:49)
[2021-06-07] MEDS: METOPROLOL SUCCINATE XL 50 MG TAB PO SCH (08:49)
[2021-06-07] MEDS: NIFEdipine ER 30 MG TAB PO SCH (08:50)
[2021-06-07] MEDS: CHOLECALCIFEROL (VITD3) 2,000 UNIT CAP/TAB PO SCH (08:50)
[2021-06-07] MEDS: ASCORBIC ACID 1,000 MG TAB PO SCH (08:50)
[2021-06-07] MEDS: MEGESTROL ACET 400MG/10ML ORAL SUSP PO SCH (08:50)
[2021-06-07] MEDS: ZINC SULFATE 220mg CAP or TAB PO SCH (08:50)
[2021-06-07] MEDS: CALCIUM W/VIT D (600MG/400IU) TAB PO SCH ×2 (08:50→18:00)
[2021-06-07] MEDS: DexAMETHasone SOD PHOS 10MG/1ML VIAL INJ IV SCH (08:52)
[2021-06-07] MEDS: PANTOPRAZOLE 40 MG/10 ML VIAL INJ IV SCH (08:52)
[2021-06-07] MEDS: DULoxetine HCL 30 MG CAP PO SCH (08:52)
[2021-06-07] MEDS: ENOXAPARIN SOD 60 MG/0.6 ML SYRINGE SC SCH (08:53)
[2021-06-07 09:00] VITALS: BP 135/90
[2021-06-07 12:39] VITALS: BP 114/66
[2021-06-07] MEDS: MORPHINE SULFATE INJECTION 2 MG/ML SYRG IV PRN (15:16)
[2021-06-07 17:12] VITALS: BP 114/60
== END 2021-06-07 18:00 | DRG 480 ==
LOC: EDBD 06:12 → EDUNIT# 06:12 → ER 06:12 → OVERFLOW 12:01 → CENTRAL 16:41 → TELE-CENTR 05-27 03:49 → TELE-EAST 05-27 06:11 → TELE-CENTR 06-04 13:13
PROVIDERS: ADMIT Hospitalist; ATTEND Internal Medicine
PROC: XW033E5 Introduction of Remdesivir Anti-infective into Peripheral Vein, Percutaneous Approach, New Technology Group 5 (ICD-10-PCS; 2021-05-28)
PROC: 30233N1 Transfusion of Nonautologous Red Blood Cells into Peripheral Vein, Percutaneous Approach (ICD-10-PCS; 2021-05-30)
PROC: 0QS734Z Reposition Left Upper Femur with Internal Fixation Device, Percutaneous Approach (ICD-10-PCS; principal; 2021-05-31)
PROC: BQ111ZZ Fluoroscopy of Left Hip using Low Osmolar Contrast (ICD-10-PCS; 2021-05-31)
DX: S72.142A Displaced intertrochanteric fracture of left femur, initial encounter for closed fracture (principal); U07.1 COVID-19; J12.82 Pneumonia due to coronavirus disease 2019; J96.01 Acute respiratory failure with hypoxia; I21.A1 Myocardial infarction type 2; J44.0 Chronic obstructive pulmonary disease with (acute) lower respiratory infection; J98.11 Atelectasis; I13.0 Hypertensive heart and chronic kidney disease with heart failure and stage 1 through stage 4 chronic kidney disease, or unspecified chronic kidney disease; W01.0XXA Fall on same level from slipping, tripping and stumbling without subsequent striking against object, initial encounter; F32.9 Major depressive disorder, single episode, unspecified; F41.9 Anxiety disorder, unspecified; I50.9 Heart failure, unspecified; Y93.01 Activity, walking, marching and hiking; N18.30 Chronic kidney disease, stage 3 unspecified; E78.5 Hyperlipidemia, unspecified; K21.9 Gastro-esophageal reflux disease without esophagitis; Z91.19 Patient's noncompliance with other medical treatment and regimen; Z79.899 Other long term (current) drug therapy; Z82.49 Family history of ischemic heart disease and other diseases of the circulatory system; Z86.711 Personal history of pulmonary embolism; Z86.73 Personal history of transient ischemic attack (TIA), and cerebral infarction without residual deficits; Z83.3 Family history of diabetes mellitus; Y92.090 Kitchen in other non-institutional residence as the place of occurrence of the external cause; Y99.8 Other external cause status; Z71.6 Tobacco abuse counseling
CPT/HCPCS: 36415; 70450; 71045; 71275; 72170; 72192; 73502; 76000; 80053; 80061; 82728; 83036; 83540; 83550; 83615; 83735; 83880; 84100; 84484; 85007; 85025; 85027; 85379; 85610; 85730; 86141; 86160; 86850; 86900; 86901; 86920; 87040; 87426; 93005; 93306; 93926; 93970; 94640; 96365; 96375; 97110; 97116; 97163; 97530; 99291; C9113; G0378; J0690; J1100; J2001; J2250; J2405; J2704

== ENCOUNTER 2021-10-03 16:22 | Emergency (ER) | payer OTHER, MEDICAID ==
[~2021-10-03] VITALS: Ht 160 cm; Wt 46.7 kg
[2021-10-03] MEDS ORDERED: HYDROcodone-ACET 5/325MG TAB PO ONE (16:30)
[2021-10-03 18:25] LABS: Basophils # (auto) 0.1 10 ^3/uL (0-0.2); Basophils % (auto) 0.8 % (0.0-2.0); Eosinophils # (auto) 0.5 10 ^3/uL (0-0.8); Eosinophils % (auto) 5.3 % (0.0-7.0); Hematocrit 34.3 % (36.0-46.0); Lymphocytes # (auto) 1.8 10 ^3/uL (0.4-5.4); Lymphocytes % (auto) 20.2 % (10.0-50.0); Mean Corpuscular Hgb Conc. 31.9 g/dL (32.0-36.0); Mean Corpuscular Volume 84.4 fL (80.0-100.0); Monocytes # (auto) 0.8 10 ^3/uL (0-1.3); Monocytes % (auto) 8.6 % (0.0-12.0); Neutrophils # (auto) 5.7 10 ^3/uL (1.6-8.6); Neutrophils % (auto) 65.1 % (37.0-80.0); Nucleated Red Blood Cells % 0.1 %; Red Blood Cells 4.06 10^6/uL (4.0-5.20); Red Cell Distribution Width 16.6 % (11.8-14.3); White Blood Cell 8.7 10^3/uL (4.4-10.8)
[2021-10-03 18:55] LABS: Potassium 5.1 mmol/L (3.5-5.1)
[2021-10-03 18:56] LABS: Calcium 9.3 mg/dL (8.5-10.1)
[2021-10-03] MEDS ORDERED: [UNRECOGNIZED DRUG - CODE] XX (21:43)
[2021-10-04 08:54] VITALS: BP 122/81
== END 2021-10-04 12:32 ==
LOC: ER 16:22 → EDUNIT# 16:22 → EDBD 16:22 → ER 10-04 12:32
DX: S32.10XA Unspecified fracture of sacrum, initial encounter for closed fracture (principal); S32.2XXA Fracture of coccyx, initial encounter for closed fracture; J44.9 Chronic obstructive pulmonary disease, unspecified; F17.210 Nicotine dependence, cigarettes, uncomplicated; I12.9 Hypertensive chronic kidney disease with stage 1 through stage 4 chronic kidney disease, or unspecified chronic kidney disease; N18.9 Chronic kidney disease, unspecified; Z79.899 Other long term (current) drug therapy; W01.0XXA Fall on same level from slipping, tripping and stumbling without subsequent striking against object, initial encounter; Y93.89 Activity, other specified; Y92.89 Other specified places as the place of occurrence of the external cause; Y99.8 Other external cause status
CPT/HCPCS: 36415; 72220; 80048; 85025; 93005